=== PATIENT | female | born 1965 | race Caucasian/White ===

== ENCOUNTER 2017-11-12 04:47 | Emergency (ER) | payer OTHER, MEDICAID, SELFPAY ==
[2017-11-12 05:02] VITALS: BP 129/90; PULSE 90; RESP 18; O2SAT 100; BMI 36.6
--- NOTE | 2017-11-12 05:43 | ED.LOWEXIN ---
HPI - Extremity Injury (Lower) General Chief Complaint: Extremity Injury, Lower Stated Complaint: LEFT FOOT IS SWOLLEN Source: patient and RN notes reviewed Mode of arrival: ambulatory Limitations: no limitations History of Present Illness HPI Narrative: Patient is a 52-year-old female who presents with bilateral lower extremity swelling. She does not know how long it has been there probably a couple weeks. She started working and the [employer] on as a new job. She has not had any injury. She notices the swelling gets significantly worse and in the morning it does improve. They were up all night preparing for a garage sale, she feels like her little more painful now. No numbness or tingling. She has not had fever or chills. No chest pain or shortness of breath. Onset (ago): unknown Related Data Previous Rx's Medication Instructions Recorded polyethylene glycol 3350 [Miralax] 17 gm PO QDAYP PRN #1 bot 04/16/16 diclofenac sodium [Voltaren] 1 humberto TOPICAL TID PRN #100 gm 04/23/16 ondansetron [Zofran ODT] 4 mg SUBLINGUAL Q6HP PRN #10 odt 09/08/16 tamsulosin [Flomax] 0.4 mg PO QDAY #7 cap 09/08/16 hydrocodone-acetaminophen 1 tab PO Q6HP PRN #30 tab 03/25/17 phentermine 37.5 mg PO QAM #30 tab 04/20/17 [id number] 4 drp OTIC Q6H #10 ml 08/08/17 levothyroxine [Synthroid] 137 mcg PO QAM #10 tab 09/02/17 meloxicam 15 mg PO QDAY #90 tab 10/01/17 Allergies Allergy/AdvReac Type Severity Reaction Status Date / Time oxycodone [From PERCOCET] Allergy Intermediate RASH Unverified 10/13/17 13:02 Review of Systems Review of Systems All systems reviewed & are unremarkable except as noted in HPI and below Constitutional Denies chills, Denies fever(s), Denies headache(s), Denies lethargy and Denies weakness ENT Ears, Nose, Mouth, and Throat: Denies headache(s) Cardiovascular Denies chest pain, Denies dyspnea and Denies dyspnea on exertion Respiratory Denies dyspnea, Denies dyspnea on exertion and Denies wheezing Gastrointestinal Gastrointestinal: Denies abdominal pain, Denies change in bowel habits, Denies diarrhea, Denies nausea and Denies vomiting Musculoskeletal Reports as per HPI and Denies tingling Neurologic Denies headache(s), Denies tingling, Denies paresthesias and Denies weakness Allergic/Immunologic Denies wheezing [facility] Surgical History Status post surgery (08/15/12) Social History Smoking Status: Current some day smoker Exam Narrative Exam Narrative: GENERAL: Well-appearing, well-nourished and in no acute distress. HEENT: Head atraumatic,EOMI, pupils reactive CARDIOVASCULAR: Regular rate and rhythm without murmurs, rubs or gallops. RESPIRATORY: Breath sounds equal bilaterally, no wheezes rales or rhonchi. ABDOMEN: Soft, nontender. Normoactive bowel sounds all 4 quadrants. No guarding or rebound. EXTREMITIES: Normal range of motion, peripheral pulses intact mild nonpitting foot edema only no tibial edema NEUROLOGICAL: Alert and oriented x4.Normal gait and speech. SKIN: Warm, dry, no laceration, no petechiae, no rashes or lesions. Course Last Vital Signs Pulse 90 11/12/17 05:02 Resp 18 11/12/17 05:02 BP 129/90 H 11/12/17 05:02 Pulse Ox 100 11/12/17 05:02 Discharge Plan Departure Patient Disposition: Home, Self-Care Clinical Impression: Edema extremities Discharge Date/Time: 11/12/17 05:55 Instructions: DI for Edema Due to Venous Stasis Activity Restrictions/Additional Instructions: *You have been diagnosed with venous stasis in lower extremity edema *What to do: Recommend compression socks keeping legs elevated as often as possible, wearing supportive shoe *Take medications as directed *Follow up with your primary care provider in 2-3 days *Return to ER if you should have increasing pain, redness, numbness, tingling or any new, worsening or concerning symptoms Prescriptions: No Action polyethylene glycol 3350 [Miralax] 119 GM powder 17 gm PO QDAYP PRNQty: 1 RF: 3 diclofenac sodium [Voltaren] 1 % gel 1 humberto Topical TID PRNQty: 100 RF: 1 tamsulosin [Flomax] 0.4 MG capsule,extended release 24hr 0.4 mg PO QDAY Qty: 7 RF: 0 ondansetron [Zofran ODT] 4 MG tablet,disintegrating 4 mg Sublingual Q6HP PRNQty: 10 RF: 0 hydrocodone-acetaminophen 5 MG/325 MG tablet 1 tab PO Q6HP PRNQty: 30 RF: 0 phentermine 37.5 MG tablet 37.5 mg PO QAM Qty: 30 RF: 1 [id number] 10 ML drops,suspension 4 drp OTIC Q6H Qty: 10 RF: 0 levothyroxine [Synthroid] 137 MCG tablet 137 mcg PO QAM Qty: 10 RF: 0 meloxicam 15 MG tablet 15 mg PO QDAY Qty: 90 RF: 3 Referrals: Anny Velazco PA-C [Primary Care Provider] -
--- NOTE | 2017-11-12 06:01 | ED_ITS ---
HPI - Extremity Injury (Lower) General Chief Complaint: Extremity Injury, Lower Stated Complaint: LEFT FOOT IS SWOLLEN Source: patient and RN notes reviewed Mode of arrival: ambulatory Limitations: no limitations History of Present Illness HPI Narrative: Patient is a 52-year-old female who presents with bilateral lower extremity swelling. She does not know how long it has been there probably a couple weeks. She started working and the [employer] on as a new job. She has not had any injury. She notices the swelling gets significantly worse and in the morning it does improve. They were up all night preparing for a garage sale, she feels like her little more painful now. No numbness or tingling. She has not had fever or chills. No chest pain or shortness of breath. Onset (ago): unknown Related Data Previous Rx's Medication Instructions Recorded polyethylene glycol 3350 [Miralax] 17 gm PO QDAYP PRN #1 bot 04/16/16 diclofenac sodium [Voltaren] 1 humberto TOPICAL TID PRN #100 gm 04/23/16 ondansetron [Zofran ODT] 4 mg SUBLINGUAL Q6HP PRN #10 odt 09/08/16 tamsulosin [Flomax] 0.4 mg PO QDAY #7 cap 09/08/16 hydrocodone-acetaminophen 1 tab PO Q6HP PRN #30 tab 03/25/17 phentermine 37.5 mg PO QAM #30 tab 04/20/17 [id number] 4 drp OTIC Q6H #10 ml 08/08/17 levothyroxine [Synthroid] 137 mcg PO QAM #10 tab 09/02/17 meloxicam 15 mg PO QDAY #90 tab 10/01/17 Allergies Allergy/AdvReac Type Severity Reaction Status Date / Time oxycodone [From PERCOCET] Allergy Intermediate RASH Unverified 10/13/17 13:02 Review of Systems Review of Systems All systems reviewed & are unremarkable except as noted in HPI and below Constitutional Denies chills, Denies fever(s), Denies headache(s), Denies lethargy and Denies weakness ENT Ears, Nose, Mouth, and Throat: Denies headache(s) Cardiovascular Denies chest pain, Denies dyspnea and Denies dyspnea on exertion Respiratory Denies dyspnea, Denies dyspnea on exertion and Denies wheezing Gastrointestinal Gastrointestinal: Denies abdominal pain, Denies change in bowel habits, Denies diarrhea, Denies nausea and Denies vomiting Musculoskeletal Reports as per HPI and Denies tingling Neurologic Denies headache(s), Denies tingling, Denies paresthesias and Denies weakness Allergic/Immunologic Denies wheezing [facility] Surgical History Status post surgery (08/15/12) Social History Smoking Status: Current some day smoker Exam Narrative Exam Narrative: GENERAL: Well-appearing, well-nourished and in no acute distress. HEENT: Head atraumatic,EOMI, pupils reactive CARDIOVASCULAR: Regular rate and rhythm without murmurs, rubs or gallops. RESPIRATORY: Breath sounds equal bilaterally, no wheezes rales or rhonchi. ABDOMEN: Soft, nontender. Normoactive bowel sounds all 4 quadrants. No guarding or rebound. EXTREMITIES: Normal range of motion, peripheral pulses intact mild nonpitting foot edema only no tibial edema NEUROLOGICAL: Alert and oriented x4.Normal gait and speech. SKIN: Warm, dry, no laceration, no petechiae, no rashes or lesions. Course Last Vital Signs Pulse 90 11/12/17 05:02 Resp 18 11/12/17 05:02 BP 129/90 H 11/12/17 05:02 Pulse Ox 100 11/12/17 05:02 Discharge Plan Departure Patient Disposition: Home, Self-Care Clinical Impression: Edema extremities Discharge Date/Time: 11/12/17 05:55 Instructions: DI for Edema Due to Venous Stasis Activity Restrictions/Additional Instructions: *You have been diagnosed with venous stasis in lower extremity edema *What to do: Recommend compression socks keeping legs elevated as often as possible, wearing supportive shoe *Take medications as directed *Follow up with your primary care provider in 2-3 days *Return to ER if you should have increasing pain, redness, numbness, tingling or any new, worsening or concerning symptoms Prescriptions: No Action polyethylene glycol 3350 [Miralax] 119 GM powder 17 gm PO QDAYP PRNQty: 1 RF: 3 diclofenac sodium [Voltaren] 1 % gel 1 humberto Topical TID PRNQty: 100 RF: 1 tamsulosin [Flomax] 0.4 MG capsule,extended release 24hr 0.4 mg PO QDAY Qty: 7 RF: 0 ondansetron [Zofran ODT] 4 MG tablet,disintegrating 4 mg Sublingual Q6HP PRNQty: 10 RF: 0 hydrocodone-acetaminophen 5 MG/325 MG tablet 1 tab PO Q6HP PRNQty: 30 RF: 0 phentermine 37.5 MG tablet 37.5 mg PO QAM Qty: 30 RF: 1 [id number]-RE 10 ML drops,suspension 4 drp OTIC Q6H Qty: 10 RF: 0 levothyroxine [Synthroid] 137 MCG tablet 137 mcg PO QAM Qty: 10 RF: 0 meloxicam 15 MG tablet 15 mg PO QDAY Qty: 90 RF: 3 Referrals: Anny Velazco PA-C [Primary Care Provider] -
== END 2017-11-12 05:55 | disposition home or self-care (01) ==
PROVIDERS: Emergency Provider Emergency Medicine; Family Provider Physician Assistant; PCP Physician Assistant
DX: R60.0 Localized edema (principal)
CPT/HCPCS: 99282

== ENCOUNTER → 2017-11-26 09:14 | Outpatient (CLI) | payer OTHER, MEDICAID, SELFPAY ==
[2017-11-26 11:04] LABS: Erythrocyte Sedimentation Rate 6 MM/HR (0-20)
[2017-11-26 11:22] LABS: Cholesterol 163 mg/dL (140-199); HDL Cholesterol 63 mg/dL (40-60); LDL Cholesterol Calculated 82 mg/dL (<100); Triglycerides 89 mg/dL (35-150); VLDL Cholesterol Calculated 18 mg/dL (2-30)
[2017-11-26 11:26] LABS: Free T3, Triiodothyronine Free 3.74 pg/mL (2.77-5.27)
[2017-11-26 11:39] LABS: TSH w/ Reflex to FT4 6.12 uIU/mL (0.47-4.68)
[2017-11-26 12:08] LABS: Free T4, Direct Thyroxine 1.19 ng/dL (0.78-2.19)
[2017-11-30 15:32] LABS: Thyroid Peroxidase Antibodies > 900 IU/mL (< 9)
[2017-11-30 15:38] LABS: Triiodothyronine T3 Total 108 ng/dL (76-181)
== END ==
PROVIDERS: Family Provider Physician Assistant; PCP Physician Assistant; Visit Provider Physician Assistant
DX: E66.9 Obesity, unspecified (principal); E03.8 Other specified hypothyroidism; E06.3 Autoimmune thyroiditis; N20.0 Calculus of kidney; R60.0 Localized edema
CPT/HCPCS: 36415; 80061; 84439; 84443; 84480; 84481; 85651; 86376

== ENCOUNTER → 2020-01-24 11:42 | Outpatient (CLI) | payer OTHER, MEDICAID, SELFPAY ==
[2020-01-24 13:13] LABS: Free T4, Direct Thyroxine 1.23 ng/dL (0.78-2.19)
[2020-01-24 13:27] LABS: Thyroid Stimulating Hormone 3.54 uIU/mL (0.47-4.68)
== END ==
PROVIDERS: PCP Family Medicine; Referring Provider Family Medicine; Visit Provider Family Medicine
DX: E03.9 Hypothyroidism, unspecified (principal)
CPT/HCPCS: 36415; 84439; 84443

== ENCOUNTER 2021-12-31 01:15 | Emergency (ER) | payer OTHER, MEDICAID, SELFPAY ==
[2021-12-31 01:38] VITALS: BP 115/61; PULSE 80; RESP 18; TEMP 36.3; O2SAT 97
--- NOTE | 2021-12-31 02:02 | ED.FEMALEGU ---
HPI - Female Genitourinary General Chief complaint: Urogenital-Female Stated complaint: BLADDER INFECTION Time Seen by Provider: 12/31/21 01:26 Source: patient Mode of arrival: Ambulatory History of Present Illness HPI Narrative: 56-year-old female daily smoker with history of hypothyroid, kidney stones, abdominal pain, constipation, sepsis presents with a chief complaint of urinary symptoms including dysuria, frequency or urgency. Related Data Previous Rx's Medication Instructions Recorded polyethylene glycol 3350 17 17 gm PO QDAYP PRN ##1 04/16/16 gram/dose oral powder (Miralax) hydrocodone 5 mg-acetaminophen 325 1 tab PO Q6HP PRN #30 tabs 03/25/17 mg tablet phentermine 37.5 mg tablet 37.5 mg PO QAM #30 tabs 04/20/17 mupirocin calcium 2 % topical cream 1 applictn topical TID #15 grams 11/23/17 levothyroxine 137 mcg tablet 137 mcg PO QAM #30 tabs 04/15/18 (Synthroid) meloxicam 15 mg tablet 15 mg PO QDAY #30 tabs 04/15/18 Allergies Allergy/AdvReac Type Severity Reaction Status Date / Time oxycodone [From PERCOCET] Allergy Intermediate RASH Unverified 11/23/17 09:25 Patient History Medical History (Updated 11/27/17 @ 00:00 by ) Colon polyps (~09/2012) Depression (Unknown) Hepatitis C (~2010) Herpes (~2010) Hypothyroidism (Unknown) Surgical History Status post surgery (08/15/12) alcohol intake frequency: a few times a month Substance Use Type: does not use Exam Initial Vital Signs Initial Vital Signs: Vital Signs Temperature 97.3 F L 12/31/21 01:38 Pulse Rate 80 12/31/21 01:38 Respiratory Rate 18 12/31/21 01:38 Blood Pressure 115/61 12/31/21 01:38 Pulse Oximetry 97 12/31/21 01:38 Oxygen Delivery Method 12/31/21 01:38 Course Vital Signs Vital signs: Vital Signs - 8 hr 12/31/21 01:38 Temperature 97.3 F L Pulse Rate 80 Respiratory Rate 18 Blood Pressure 115/61 Pulse Oximetry 97 Oxygen Delivery Method Room Air Discharge Plan Departure Prescriptions: No Action mupirocin calcium 2 % cream 1 applictn TOP TID Qty: 15 0RF meloxicam 15 mg tablet 15 mg PO QDAY Qty: 30 0RF levothyroxine [Synthroid] 137 mcg tablet 137 mcg PO QAM Qty: 30 0RF polyethylene glycol 3350 [Miralax] 119 GM powder 17 gm PO QDAYP PRNQty: 1 3RF hydrocodone-acetaminophen 5 MG/325 MG tablet 1 tab PO Q6HP PRNQty: 30 0RF phentermine 37.5 MG tablet 37.5 mg PO QAM Qty: 30 1RF Referrals: Lisa Morales DO [Primary Care Provider] -
== END 2021-12-31 02:20 | disposition left against medical advice (07) ==
PROVIDERS: Emergency Provider Emergency Medicine; PCP Family Medicine
CPT/HCPCS: 99281

== ENCOUNTER 2022-01-21 13:12 | Emergency (ER) | payer OTHER, MEDICAID, SELFPAY ==
[2022-01-21 13:26] VITALS: BP 129/79; PULSE 96; RESP 16; TEMP 36.6; O2SAT 99; BMI 37.8
--- NOTE | 2022-01-21 15:05 | PC.NURSE ---
Called patient. Per administrative support clerk, she got out of wheelchair and went outside for a walk.
== END 2022-01-21 15:05 | disposition left against medical advice (07) ==
PROVIDERS: Emergency Provider Emergency Medicine; PCP Physician Assistant
CPT/HCPCS: 99281

== ENCOUNTER 2022-06-27 08:30 | Emergency (ER) | payer OTHER, MEDICAID, SELFPAY ==
[2022-06-27 08:39] VITALS: BP 155/78; PULSE 70; RESP 14; TEMP 36.8; O2SAT 99; BMI 37.8
[2022-06-27 12:04] VITALS: BP 128/90; PULSE 82; RESP 18; TEMP 36.5; O2SAT 99
--- NOTE | 2022-06-27 12:38 | ED_ITS ---
HPI - Skin/Abscess/Foreign Bdy General Chief complaint: Skin/Abscess/Foreign Body Stated complaint: cut finger is bleeding takes metaform Time Seen by Provider: 06/27/22 12:38 Source: patient Mode of arrival: Ambulatory Limitations: no limitations History of Present Illness HPI narrative: This is a 56-year-old female with history of hypothyroidism and dyb-quqkagw-wulohznjc diabetes on metformin and levothyroxine with complaint of laceration to her 3rd finger and very superficially on her 2nd finger at home earlier today. Patient states she was trying to open a package she did not or could not find her scissors used a razor and accidentally cut her finger. She states she can flex and straighten it. She does not know if there is any numbness or tingling. Her fingers have been wrapped quite tightly for several hours and she states they feel numb right now. Patient states there was bleeding when initially occurred that is improved. She is unsure of her tetanus status. She does smoke, occasional alcohol, no illicit. Related Data Previous Rx's Medication Instructions Recorded polyethylene glycol 3350 17 17 gm PO QDAYP PRN ##1 04/16/16 gram/dose oral powder (Miralax) hydrocodone 5 mg-acetaminophen 325 1 tab PO Q6HP PRN #30 tabs 03/25/17 mg tablet phentermine 37.5 mg tablet 37.5 mg PO QAM #30 tabs 04/20/17 mupirocin calcium 2 % topical cream 1 applictn topical TID #15 grams 11/23/17 levothyroxine 137 mcg tablet 137 mcg PO QAM #30 tabs 04/15/18 (Synthroid) meloxicam 15 mg tablet 15 mg PO QDAY #30 tabs 04/15/18 Allergies Allergy/AdvReac Type Severity Reaction Status Date / Time oxycodone [From PERCOCET] Allergy Intermediate RASH Verified 06/27/22 08:46 Review of Systems Review of Systems ROS Unobtainable: All systems reviewed & are unremarkable except as noted in HPI and below Patient History Medical History (Updated 06/27/22 @ 13:01 by Melinda Tirado DO) Colon polyps (~09/2012) Depression (Unknown) Hepatitis C (~2010) Herpes (~2010) Hypothyroidism (Unknown) Surgical History Status post surgery (08/15/12) Social History marital status: Smoking Status: Current every day smoker Smoking Status: Current every day smoker alcohol intake frequency: a few times a month Substance Use Type: does not use Exam Narrative Exam Narrative: GENERAL: Alert and oriented x three, mild distress HEENT: Head normocephalic, atraumatic, EOMI, pupils reactive, face symmetric, moist mucous membranes NECK: Supple, full range of motion EXTREMITIES: Normal range of motion, no clubbing or edema. Neurovascularly inta ct. Patient has laceration of the 3rd digit of her left hand. Patient is gapped, subcutaneous is exposed, no bony or tender involvement. Patient can flex and extend. Intact distally with no decreasing cap refill. Right-hand dominant. She is a very superficial lack on her 2nd finger which is not requiring repair. NEUROLOGICAL: Cranial nerves II through XII grossly intact. Moving all extremit ies SKIN: Warm, dry, no petechiae, no rashes or lesions. Initial Vital Signs Initial Vital Signs: Vital Signs Temperature 98.2 F 06/27/22 08:39 Pulse Rate 70 06/27/22 08:39 Respiratory Rate 14 06/27/22 08:39 Blood Pressure 155/78 H 06/27/22 08:39 Pulse Oximetry 99 06/27/22 08:39 Oxygen Delivery Method 06/27/22 08:39 Course Orders Ordered: Discontinued Medications Bacitracin (Bacitracin Oint 0.9 Gm Pckt) 1 applic TOP NOW ONE Stop: 06/27/22 13:47 Last Admin: 06/27/22 13:48 Dose: 1 applic Documented By: LASHON Diphtheria/Tetanus/Acell Pertussis (Tet,Diph,Pertuss(Acell),Vac/Pf 0.5 Ml Syringe) 0.5 ml IM .ONCE ONE Stop: 06/27/22 12:58 Last Admin: 06/27/22 13:12 Dose: 0.5 ml Documented By: LASHON Lidocaine HCl (Lidocaine 2% Inj Sdv) 5 ml INJ INTRA-OP ONE Stop: 06/27/22 12:58 Last Admin: 06/27/22 13:17 Dose: 5 ml Documented By: LASHON Vital Signs Vital signs: Vital Signs - 8 hr 06/27/22 08:39 06/27/22 12:04 Temperature 98.2 F 97.7 F Pulse Rate 70 82 Respiratory Rate 14 18 Blood Pressure 155/78 H 128/90 Pulse Oximetry 99 99 Oxygen Delivery Method Room Air Room Air Discharge Plan Departure Patient Disposition: Home Clinical Impression: Laceration of finger Instructions: DI for Laceration Repair -- Finger Activity Restrictions/Additional Instructions: Follow-up for suture removal in 7-10 days. You can get a primary care, urgent care or return to the ER for suture removal. You have 7 sutures total. Wound Care: Keep wound(s) clean and dry. Wash daily with soap and water only. Do not use over the counter products (alcohol or peroxide)on the wounds unless instructed by a physician. If wound condition worsens (increased/expanding redness, developing fluid blisters, or worsening pain), either contact your doctor for an urgent re- assessment , or return to the Emergency Department. Return to the Emergency Department for any new or worsening symptoms. Return if fever greater than 100.4 Fahrenheit, increased swelling, increasing pain or worsening symptoms such as increased discharge or spreading redness. Prescriptions: No Action mupirocin calcium 2 % cream 1 applictn TOP TID Qty: 15 0RF meloxicam 15 mg tablet 15 mg PO QDAY Qty: 30 0RF levothyroxine [Synthroid] 137 mcg tablet 137 mcg PO QAM Qty: 30 0RF polyethylene glycol 3350 [Miralax] 119 GM powder 17 gm PO QDAYP PRNQty: 1 3RF hydrocodone-acetaminophen 5 MG/325 MG tablet 1 tab PO Q6HP PRNQty: 30 0RF phentermine 37.5 MG tablet 37.5 mg PO QAM Qty: 30 1RF Referrals: Marco Antonio Head PA-C [Primary Care Provider] - Visit Report Forms: Patient Portal/API
[2022-06-27] MEDS: TET,DIPH,PERTUSS(ACELL),VAC/PF 0.5 ML SYRINGE IM (13:12)
[2022-06-27] MEDS: LIDOCAINE 2% INJ SDV 5 ML INJ (13:17)
[2022-06-27] MEDS: BACITRACIN OINT 0.9 GM PCKT 1 APPLIC TOP (13:48)
[2022-06-27 13:53] VITALS: BP 133/88; PULSE 88; RESP 16; O2SAT 99
--- NOTE | 2022-07-11 12:56 | ED_ITS ---
HPI - Skin/Abscess/Foreign Bdy General Chief complaint: Skin/Abscess/Foreign Body Stated complaint: cut finger is bleeding takes metaform Time Seen by Provider: 06/27/22 12:38 Source: patient Mode of arrival: Ambulatory Limitations: no limitations Related Data Previous Rx's Medication Instructions Recorded polyethylene glycol 3350 17 17 gm PO QDAYP PRN ##1 04/16/16 gram/dose oral powder (Miralax) hydrocodone 5 mg-acetaminophen 325 1 tab PO Q6HP PRN #30 tabs 03/25/17 mg tablet phentermine 37.5 mg tablet 37.5 mg PO QAM #30 tabs 04/20/17 mupirocin calcium 2 % topical cream 1 applictn topical TID #15 grams 11/23/17 levothyroxine 137 mcg tablet 137 mcg PO QAM #30 tabs 04/15/18 (Synthroid) meloxicam 15 mg tablet 15 mg PO QDAY #30 tabs 04/15/18 Allergies Allergy/AdvReac Type Severity Reaction Status Date / Time oxycodone [From PERCOCET] Allergy Intermediate RASH Verified 06/27/22 08:46 Patient History Medical History (Updated 06/27/22 @ 13:01 by Melinda Tirado DO) Colon polyps (~09/2012) Depression (Unknown) Hepatitis C (~2010) Herpes (~2010) Hypothyroidism (Unknown) Surgical History Status post surgery (08/15/12) Social History marital status: Smoking Status: Current every day smoker Smoking Status: Current every day smoker alcohol intake frequency: a few times a month Substance Use Type: does not use Exam Initial Vital Signs Initial Vital Signs: Vital Signs Temperature 98.2 F 06/27/22 08:39 Pulse Rate 70 06/27/22 08:39 Respiratory Rate 14 06/27/22 08:39 Blood Pressure 155/78 H 06/27/22 08:39 Pulse Oximetry 99 06/27/22 08:39 Oxygen Delivery Method 06/27/22 08:39 Procedures Laceration Repair Laceration 1: Site: hand Side (If applicable): left (3rd finger.) Description: linear and flap Depth: simple, single layer Local Anesthetic: lidocaine 1% and with bicarb Amount of anesthesia used (mL): 5 Pre-repair: wound explored, irrigated extensively and deep structures intact Skin layer closed with: nylon Skin layer suture size: 4-0 Number of sutures: 7 Technique: simple, interrupted Course Orders Ordered: Discontinued Medications Bacitracin (Bacitracin Oint 0.9 Gm Pckt) 1 applic TOP NOW ONE Stop: 06/27/22 13:47 Last Admin: 06/27/22 13:48 Dose: 1 applic Documented By: LASHON Diphtheria/Tetanus/Acell Pertussis (Tet,Diph,Pertuss(Acell),Vac/Pf 0.5 Ml Syringe) 0.5 ml IM .ONCE ONE Stop: 06/27/22 12:58 Last Admin: 06/27/22 13:12 Dose: 0.5 ml Documented By: LASHON Lidocaine HCl (Lidocaine 2% Inj Sdv) 5 ml INJ INTRA-OP ONE Stop: 06/27/22 12:58 Last Admin: 06/27/22 13:17 Dose: 5 ml Documented By: LASHON Discharge Plan Departure Patient Disposition: Home Clinical Impression: Laceration of finger Instructions: DI for Laceration Repair -- Finger Activity Restrictions/Additional Instructions: Follow-up for suture removal in 7-10 days. You can get a primary care, urgent care or return to the ER for suture removal. You have 7 sutures total. Wound Care: Keep wound(s) clean and dry. Wash daily with soap and water only. Do not use over the counter products (alcohol or peroxide)on the wounds unless instructed by a physician. If wound condition worsens (increased/expanding redness, developing fluid blisters, or worsening pain), either contact your doctor for an urgent re- assessment , or return to the Emergency Department. Return to the Emergency Department for any new or worsening symptoms. Return if fever greater than 100.4 Fahrenheit, increased swelling, increasing pain or worsening symptoms such as increased discharge or spreading redness. Prescriptions: No Action mupirocin calcium 2 % cream 1 applictn TOP TID Qty: 15 0RF meloxicam 15 mg tablet 15 mg PO QDAY Qty: 30 0RF levothyroxine [Synthroid] 137 mcg tablet 137 mcg PO QAM Qty: 30 0RF polyethylene glycol 3350 [Miralax] 119 GM powder 17 gm PO QDAYP PRNQty: 1 3RF hydrocodone-acetaminophen 5 MG/325 MG tablet 1 tab PO Q6HP PRNQty: 30 0RF phentermine 37.5 MG tablet 37.5 mg PO QAM Qty: 30 1RF Referrals: Marco Antonio Head PA-C [Primary Care Provider] - Visit Report Forms: Patient Portal/API
== END 2022-06-27 13:53 | disposition home or self-care (01) ==
PROVIDERS: Emergency Provider Emergency Medicine; PCP Physician Assistant
DX: S61.213A Laceration without foreign body of left middle finger without damage to nail, initial encounter (principal); S61.211A Laceration without foreign body of left index finger without damage to nail, initial encounter; W26.8XXA Contact with other sharp object(s), not elsewhere classified, initial encounter; Z23 Encounter for immunization
CPT/HCPCS: 12002; 90471; 99283; 90715

== ENCOUNTER 2022-09-22 23:33 | Emergency (ER) | payer OTHER, MEDICAID, SELFPAY ==
[2022-09-22 23:40] VITALS: BP 125/83; PULSE 100; RESP 20; TEMP 36.6; O2SAT 98; BMI 32.5
--- NOTE | 2022-09-22 23:56 | ED.EYEPROB ---
HPI - Eye Problem General Chief complaint: Skin/Abscess/Foreign Body Stated complaint: something in lt eye Time Seen by Provider: 09/22/22 23:34 Source: patient Mode of arrival: Ambulatory History of Present Illness HPI Narrative: 57-year-old female smoker history of hypothyroid and osteopenia presents for evaluation of a painful lesion on her left upper eyelid and concerned that maybe something is in her eye. She denies any injury or foreign body exposure. She does not use contacts. 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 She had been seen and evaluated by her primary care provider a few days ago and given her history and this painful lesion on her eyelid she was started on valacyclovir which she continues to take. She denies any pain or vision change with in her high but is concerned given her history. Related Data Previous Rx's Medication Instructions Recorded polyethylene glycol 3350 17 17 gm PO QDAYP PRN ##1 04/16/16 gram/dose oral powder (Miralax) hydrocodone 5 mg-acetaminophen 325 1 tab PO Q6HP PRN #30 tabs 03/25/17 mg tablet phentermine 37.5 mg tablet 37.5 mg PO QAM #30 tabs 04/20/17 mupirocin calcium 2 % topical cream 1 applictn topical TID #15 grams 11/23/17 levothyroxine 137 mcg tablet 137 mcg PO QAM #30 tabs 04/15/18 (Synthroid) meloxicam 15 mg tablet 15 mg PO QDAY #30 tabs 04/15/18 Allergies Allergy/AdvReac Type Severity Reaction Status Date / Time oxycodone [From PERCOCET] Allergy Intermediate RASH Verified 06/27/22 08:46 Review of Systems Review of Systems Narrative: GENERAL: Denies chills, fatigue, malaise, fever, sweats. HEENT: See HPI RESPIRATORY: Denies dyspnea, cough, wheezing, hemoptysis, sputum. CARDIOVASCULAR: Denies chest pain, palpitations, orthopnea, edema, GASTROINTESTINAL: Denies nausea, vomiting, abdominal pain, diarrhea, constipation, melena. : Denies dysuria, frequency, incontinence, hematuria, urinary retention. MUSCULOSKELETAL: denies weakness, joint pain, or bony pain SKIN: See HPI NEUROLOGIC: See HPI PSYCHIATRIC: No concerning psychosocial issues. 12 point review of systems is negative except for those stated above Patient History Medical History Colon polyps (~09/2012) Depression (Unknown) Hepatitis C (~2010) Herpes (~2010) Hypothyroidism (Unknown) Surgical History Status post surgery (08/15/12) Social History marital status: Smoking Status: Current every day smoker Smoking Status: Current every day smoker alcohol intake frequency: a few times a month Substance Use Type: does not use Exam Narrative Exam Narrative: GEN: AOx3 and in mild distress EYES: Left upper lid with small single lesion that is slightly tender, there are no other fluid-filled blisters no other classic signs of zoster. Pupils are equal, round, and reactive to light and accommodation. Extraoccular muscles are intact bilaterally. There is no subconjunctival hemorrhage or exudate. Visual acuity 20 40 in OS, OD, OU. Left eye funduscopic without abnormal finding, no foreign body noted, upper lid everted. Proparacaine and fluorescein instilled, no dye uptake, ulcerations or dendritic lesions. Pressure 16 mmHg in left eye CHEST: Lungs are clear to auscultation bilaterally and free of wheezes, rales, or rhonchi. Heart rate is regular rhythm, there are no murmurs, clicks, rubs, or gallops. There is no chest wall tenderness. ABD: Abdomen is soft and nontender. There is no guarding or rebound. Bowel sounds are normal in all 4 quadrants. There is no mass or organomegaly. EXT: Full painless ROM of all extremities with no loss of sensation or strength. SKIN: Warm, pink, and dry. No erythema or rash Initial Vital Signs Initial Vital Signs: Vital Signs Temperature 97.9 F 09/22/22 23:40 Pulse Rate 100 H 09/22/22 23:40 Respiratory Rate 20 09/22/22 23:40 Blood Pressure 125/83 09/22/22 23:40 Pulse Oximetry 98 09/22/22 23:40 Oxygen Delivery Method Room Air 09/22/22 23:40 Course Orders Ordered: Discontinued Medications Fluorescein Sodium (Fluorescein 1 Mg Strip) 1 mg EYE-LEFT NOW ONE Stop: 09/22/22 23:35 Last Admin: 09/23/22 00:09 Dose: Not Given Documented By: MANISHA Proparacaine HCl (Proparacaine 0.5% Ophth Katie) 1 drops EYE-LEFT NOW ONE Stop: 09/22/22 23:35 Last Admin: 09/23/22 00:08 Dose: 1 drop Documented By: MANISHA Vital Signs Vital signs: Vital Signs - 8 hr 09/22/22 23:40 Temperature 97.9 F Pulse Rate 100 H Respiratory Rate 20 Blood Pressure 125/83 Pulse Oximetry 98 Oxygen Delivery Method Room Air MDM - Eye Problem MDM Narrative Medical decision making narrative: [57] year old patient presents with left upper eyelid pain and concern for possible zoster infection Multiple etiologies for patient's symptoms considered including, but not limited to: [Zoster ophthalmicus, stye, cellulitis, blepharitis, acute angle closure glaucoma versus other] Prior Charts reviewed in our EMR Primary Historian: patient Patient's symptoms improved over duration of stay with above-stated therapies. Pressures are normal, no dye uptake to suggest zoster ophthalmicus, no upper lid swelling or foreign body noted. Findings and discharge diagnosis discussed with patient/family followed by verbalization of understanding Return precautions discussed with patient/family whom verbalize understanding of diagnosis and plan Discharge Plan Departure Patient Disposition: Home Clinical Impression: Irritation of eyelid Activity Restrictions/Additional Instructions: *You have been diagnosed with [left eye lid irritation. As we discussed your history and exam are reassuring, but we would still recommend you follow up with Dr. Joseph tomorrow ] *What to do: *Please continue to take your regular medications as directed. *Please follow up with your Dr. Joseph (ophthalmology) tomorrow. As we discussed if you either call or just show up to the office 1st thing in the morning, let them know that you were seen in the emergency department and we would like you seen and close follow-up they will take your information and work you in to their patient flow for the day. I will electronically transmitted a copy of today's note *Return to Emergency Department if you should have any new, worsening or concerning symptoms, such as [fever greater than 101 F, shaking chills, worsening pain, persistent vomiting or other bothersome symptoms] Prescriptions: No Action mupirocin calcium 2 % cream 1 applictn TOP TID Qty: 15 0RF meloxicam 15 mg tablet 15 mg PO QDAY Qty: 30 0RF levothyroxine [Synthroid] 137 mcg tablet 137 mcg PO QAM Qty: 30 0RF polyethylene glycol 3350 [Miralax] 119 GM powder 17 gm PO QDAYP PRNQty: 1 3RF hydrocodone-acetaminophen 5 MG/325 MG tablet 1 tab PO Q6HP PRNQty: 30 0RF phentermine 37.5 MG tablet 37.5 mg PO QAM Qty: 30 1RF Referrals: Caroline Joseph MD [Physician] - Marco Antonio Head PA-C [Primary Care Provider] - Stand Alone Forms: Patient Portal/API
[2022-09-23] MEDS: PROPARACAINE 0.5% OPHTH SOL 1 DROPS EYE-LEFT (00:08)
== END 2022-09-23 00:11 | disposition home or self-care (01) ==
PROVIDERS: Emergency Provider Emergency Medicine; PCP Physician Assistant
DX: H02.89 Other specified disorders of eyelid (principal)
CPT/HCPCS: 99282

== ENCOUNTER 2022-12-13 05:03 | Emergency (ER) | payer OTHER, MEDICAID, SELFPAY ==
[2022-12-13 05:15] VITALS: BP 153/99; PULSE 83; RESP 16; TEMP 36.4; O2SAT 95; BMI 37.8
--- NOTE | 2022-12-13 06:05 | ED_ITS ---
HPI - General Adult <Lisa Charles MD - Last Filed: 12/20/22 06:17> General Chief complaint: Abdominal Pain Stated complaint: Constipated Time Seen by Provider: 12/13/22 05:27 Mode of arrival: Ambulatory History of Present Illness HPI narrative: 57-year-old woman with history of hypothyroidism, sacral fracture over a year ago severe enough that she could not walk for a number of months seemingly healing at this point, osteoporosis and history of chronic constipation since childhood. She typically takes 2 stool softeners daily and will occasionally use enemas and suppositories to help with bowel movements. Choose noticing incr easing pain into her right buttock that occasionally has been constipation related. She also notes with the sacral fracture that was eventually diagnosed with MRI about a year ago, she had similar pain presentation. She states that she does feel constipated. She is taken to suppositories and done to [id number] enemas with a small amount of ?long skinny stool resulting?. She describes no recent falls or trauma. No obvious back pain but she is quite uncomfortable and having difficulty bending overt secondary to pain. No recent fever, cough, chills no vomiting or nausea. No headaches chest pain or palpitations. Related Data Previous Rx's Medication Instructions Recorded polyethylene glycol 3350 17 17 gm PO QDAYP PRN ##1 04/16/16 gram/dose oral powder (Miralax) hydrocodone 5 mg-acetaminophen 325 1 tab PO Q6HP PRN #30 tabs 03/25/17 mg tablet phentermine 37.5 mg tablet 37.5 mg PO QAM #30 tabs 04/20/17 mupirocin calcium 2 % topical cream 1 applictn topical TID #15 grams 11/23/17 levothyroxine 137 mcg tablet 137 mcg PO QAM #30 tabs 04/15/18 (Synthroid) meloxicam 15 mg tablet 15 mg PO QDAY #30 tabs 04/15/18 gabapentin 300 mg capsule 300 mg PO BEDTIME #14 caps 12/13/22 ketorolac 10 mg tablet 10 mg PO Q6H PRN pain #14 tabs 12/13/22 methylprednisolone 4 mg tablets in See Rx Instructions PO .COMPLEX 12/13/22 a dose pack (Medrol (Alexandr)) #21 ea ondansetron 4 mg disintegrating 4 mg PO TID-QID PRN nausea and 12/13/22 tablet vomiting #10 tabs Allergies Allergy/AdvReac Type Severity Reaction Status Date / Time oxycodone [From PERCOCET] Allergy Intermediate RASH Verified 06/27/22 08:46 Review of Systems <Lisa Charles MD - Last Filed: 12/20/22 06:17> Review of Systems Narrative: Pertinent positive and negative findings as per HPI Patient History <Lisa Charles MD - Last Filed: 12/20/22 06:17> Medical History (Updated 12/13/22 @ 08:29 by Luis Alberto Galvin DO) Colon polyps (~09/2012) Depression (Unknown) Hepatitis C (~2010) Herpes (~2010) Hypothyroidism (Unknown) Surgical History Status post surgery (08/15/12) Social History marital status: Smoking Status: Current every day smoker Smoking Status: Current every day smoker alcohol intake frequency: a few times a month Substance Use Type: does not use Exam <Lisa Charles MD - Last Filed: 12/20/22 06:17> Initial Vital Signs Initial Vital Signs: Vital Signs Temperature 97.6 F 12/13/22 05:15 Pulse Rate 83 12/13/22 05:15 Respiratory Rate 16 12/13/22 05:15 Blood Pressure 153/99 H 12/13/22 05:15 Pulse Oximetry 95 12/13/22 05:15 Oxygen Delivery Method Room Air 12/13/22 05:15 General: Somewhat disheveled and in mild pain trying to stay off her right hip and perineum. Able to participate completely with history. HEENT: Moist mucous membranes, normal sclera with reactive pupils, Respiratory: Lungs are clear to auscultation, no wheezing no rales no rhonchi. Full and symmetrical air movement Cardiac: Regular rate and rhythm no murmurs no bruits Abdomen: Soft, nontender, good bowel tones, no flank pain Rectal exam: She has no stool in the rectal vault Skin: Warm and dry, no rashes Neurologic: Grossly neurologically intact with no obvious asymmetries or abnormalities Spine, no point tenderness along her lumbar spine or into her sacrum. She points to mid gluteal region right side as the biggest source of her pain with no obvious masses, skin changes or muscle spasm in the area of concern. Extremities: No trauma, well perfused Psych: Cooperative, appropriate insight and affect <Luis Alberto Galvin DO - Last Filed: 12/13/22 13:11> Initial Vital Signs Initial Vital Signs: Vital Signs Temperature 97.6 F 12/13/22 05:15 Pulse Rate 83 12/13/22 05:15 Respiratory Rate 16 12/13/22 05:15 Blood Pressure 153/99 H 12/13/22 05:15 Pulse Oximetry 95 12/13/22 05:15 Oxygen Delivery Method Room Air 12/13/22 05:15 Course <Lisa Charles MD - Last Filed: 12/20/22 06:17> Orders Ordered: Discontinued Medications Acetaminophen (Acetaminophen 325 Mg Tablet) 325 mg PO NOW ONE Stop: 12/13/22 06:22 Last Admin: 12/13/22 08:05 Dose: 325 mg Documented By: RB Ibuprofen (Ibuprofen 400 Mg Tablet) 400 mg PO NOW ONE Stop: 12/13/22 06:22 Last Admin: 12/13/22 08:06 Dose: 400 mg Documented By: RB Vital Signs Vital signs: Vital Signs - 8 hr 12/13/22 05:15 12/13/22 08:48 Temperature 97.6 F 98.1 F Pulse Rate 83 82 Respiratory Rate 16 17 Blood Pressure 153/99 H 138/80 Pulse Oximetry 95 97 Oxygen Delivery Method Room Air Room Air <Luis Alberto Galvin DO - Last Filed: 12/13/22 13:11> Orders Ordered: Discontinued Medications Acetaminophen (Acetaminophen 325 Mg Tablet) 325 mg PO NOW ONE Stop: 12/13/22 06:22 Last Admin: 12/13/22 08:05 Dose: 325 mg Documented By: RB Ibuprofen (Ibuprofen 400 Mg Tablet) 400 mg PO NOW ONE Stop: 12/13/22 06:22 Last Admin: 12/13/22 08:06 Dose: 400 mg Documented By: RB Vital Signs Vital signs: Vital Signs - 8 hr 12/13/22 05:15 12/13/22 08:48 Temperature 97.6 F 98.1 F Pulse Rate 83 82 Respiratory Rate 16 17 Blood Pressure 153/99 H 138/80 Pulse Oximetry 95 97 Oxygen Delivery Method Room Air Room Air Medical Decision Making <Lisa Charles MD - Last Filed: 12/20/22 06:17> Lab Data Labs: Urine Dip Bedside Urine Glucose Negative Bedside Urine Bilirubin - Negative Bedside Urine Ketone - Negative Urine Specific [place] 1.030 Bedside Urine Occult Blood +/- Bedside Urine pH 6.0 Bedside Urine Protein - Negative Bedside Urine Urobilinogen - Negative Bedside Urine Nitrite - Negative Bedside Urine Leukocytes - Negative Esterase Point of care testing: Urine Dip Bedside Urine Glucose Negative Bedside Urine Bilirubin - Negative Bedside Urine Ketone - Negative Urine Specific [place] 1.030 Bedside Urine Occult Blood +/- Bedside Urine pH 6.0 Bedside Urine Protein - Negative Bedside Urine Urobilinogen - Negative Bedside Urine Nitrite - Negative Bedside Urine Leukocytes - Negative Esterase MDM Narrative Medical decision making narrative: CC: Right buttock pain. This is an acute problem uncertain prognosis Complicating co-morbidities: History of sacral fracture with poor mobility, long history of constipation, osteoporosis, Data collected from: patient, Differential considered: Constipation, shingles, radicular pain into the buttock, recurrent sacral fracture, Exam documented above, pertinent findings include: No obstipation or stool in the rectum. No point tenderness over the lumbar area. Difficulty bending forward secondary to pain and difficulty sitting on her right hip/but cheek secondary to pain. Lab Test results independently reviewed as above. Pertinent findings: Imaging studies independently reviewed: Treatments: Oral ibuprofen and Tylenol Re-evaluations: Discussion: <Luis Alberto Galvin DO - Last Filed: 12/13/22 13:11> Lab Data Labs: Urine Dip Bedside Urine Glucose Negative Bedside Urine Bilirubin - Negative Bedside Urine Ketone - Negative Urine Specific [place] 1.030 Bedside Urine Occult Blood +/- Bedside Urine pH 6.0 Bedside Urine Protein - Negative Bedside Urine Urobilinogen - Negative Bedside Urine Nitrite - Negative Bedside Urine Leukocytes - Negative Esterase Point of care testing: Urine Dip Bedside Urine Glucose Negative Bedside Urine Bilirubin - Negative Bedside Urine Ketone - Negative Urine Specific [place] 1.030 Bedside Urine Occult Blood +/- Bedside Urine pH 6.0 Bedside Urine Protein - Negative Bedside Urine Urobilinogen - Negative Bedside Urine Nitrite - Negative Bedside Urine Leukocytes - Negative Esterase MDM Narrative Medical decision making narrative: CC: Right buttock pain. This is an acute problem uncertain prognosis Complicating co-morbidities: History of sacral fracture with poor mobility, long history of constipation, osteoporosis, Data collected from: patient, Differential considered: Constipation, shingles, radicular pain into the buttock, recurrent sacral fracture, Exam documented above, pertinent findings include: No obstipation or stool in the rectum. No point tenderness over the lumbar area. Difficulty bending forward secondary to pain and difficulty sitting on her right hip/but cheek secondary to pain. Lab Test results independently reviewed as above. Pertinent findings: Imaging studies independently reviewed: X-rays of abdomen and pelvis demonstrate no evidence of obstruction but comment on above average stool burden. No bony abnormality Treatments: Oral ibuprofen and Tylenol Re-evaluations: Patient's pain is well controlled, she is tolerating orals, hemodynamically stable [0700] (Kamar) Patient received in sign out from [Kamar]. I have reviewed the clinical course and performed an independent history and physical exam. She prefers [facility] in [place] Discussion: Patient with generalized abdominal discomfort and decreased bowel movements. No vomiting, abdomen is soft and imaging as well as history and p hysical exam suggestive of no bowel obstruction. Patient complaining of right buttock pain with radiation down her leg, no imaging abnormalities to suggest bony abnormality. She does have evidence suggestive of a lumbar radiculopathy given pain and radiation but no red flag findings suggestive of cauda equina, epidural abscess, hematoma or other neurosurgical emergency. I have discussed various [id number] options for constipation, prescription sent to her pharmacy of choice. Return precautions including persistent vomiting, worsening pain, lower extremity weakness, loss of control of bowel or bladder. Patient understands and agrees with the diagnosis and plan Discharge Plan Departure Patient Disposition: Home Clinical Impression: Lumbar pain with radiation down leg, Constipation Instructions: DI for Constipation, DI for Lumbar Radiculopathy Activity Restrictions/Additional Instructions: *You have been diagnosed with [ abdominal pain due to constipation and low back pain with radiation down your leg due to radiculopathy.] *What to do: Prescriptions sent to [facility] in [place] *Take over the counter medications as directed: 1. Metamucil - is a bulk forming laxative and adds fiber 2. Colace - softens your stool 3. Dulcolax suppository - stimulates your bowels *Follow up with your primary care provider in 2-3 days, call for appointment *Return to ER if you should have any new, worsening or concerning symptoms *Drink plenty of water and eat foods high in fiber *Stay as active as you can as this helps move your bowels as well As we discussed I have included contact information for Dr. Whitfield who can help discuss options moving forward regarding your radicular pains. Please call his office tomorrow, let them know you were seen in the emergency department and we would like you seen in follow-up. I will electronically transmitted a copy of today's note Please return to the emergency department for worsening pain, leg weakness, loss of control of bowel or bladder, persistent vomiting or other bothersome symptoms Prescriptions: New ketorolac 10 mg tablet 10 mg PO Q6H PRN (Reason: pain) Qty: 14 0RF gabapentin 300 mg capsule 300 mg PO BEDTIME Qty: 14 0RF methylprednisolone [Medrol (Alexandr)] 4 mg tablets,dose pack See Rx Instructions .ROUTE .COMPLEX Qty: 21 0RF Rx Instructions: orally per package directions ondansetron 4 mg tablet,disintegrating 4 mg PO TID-QID PRN (Reason: nausea and vomiting) Qty: 10 0RF No Action mupirocin calcium 2 % cream 1 applictn TOP TID Qty: 15 0RF meloxicam 15 mg tablet 15 mg PO QDAY Qty: 30 0RF levothyroxine [Synthroid] 137 mcg tablet 137 mcg PO QAM Qty: 30 0RF polyethylene glycol 3350 [Miralax] 119 GM powder 17 gm PO QDAYP PRNQty: 1 3RF hydrocodone-acetaminophen 5 MG/325 MG tablet 1 tab PO Q6HP PRNQty: 30 0RF phentermine 37.5 MG tablet 37.5 mg PO QAM Qty: 30 1RF Referrals: Minoo Whitfield MD [Physician] - Marco Antonio Head PA-C [Primary Care Provider] - Stand Alone Forms: Patient Portal/API
--- NOTE | 2022-12-13 06:21 | DI.RAD.S_ITS ---
PROCEDURE: XR PELVIS 1-2V INDICATIONS: buttock pain TECHNIQUE: 1 view(s) of the pelvis acquired. COMPARISON: None. FINDINGS: Bones: Mild degenerative changes of the bilateral hips. Lumbosacral degenerative changes also seen. Soft tissues: Increased stool burden. IMPRESSION: Mild degenerative changes of the hips and lumbosacral junction. Above average fecal loading. If there is high concern for further derangement, consider MRI evaluation. Dictated by: Herberth Solorio M.D. on 12/13/2022 at 8:15 Approved by: Herberth Solorio M.D. on 12/13/2022 at 8:15
--- NOTE | 2022-12-13 06:21 | DI.RAD.S_ITS ---
PROCEDURE: XR ABDOMEN 1V INDICATIONS: abdominal pain TECHNIQUE: One view of the abdomen acquired. COMPARISON: None. FINDINGS: Surgical changes and devices: Gastric band. Phi angle is in appropriate position Bowel: Nonspecific bowel gas pattern. Overall increased stool burden. Soft tissues: Cholecystectomy clips. No suspicious calcifications. Bones: Degenerative changes and rightward spinal curvature. IMPRESSION: Increased stool burden. Nonspecific bowel gas pattern otherwise. Gastric band in place. There are degenerative changes. If there is high concern for acute abdomen, consider CT Dictated by: Herberth Solorio M.D. on 12/13/2022 at 8:13 Approved by: Herberth Solorio M.D. on 12/13/2022 at 8:15
[2022-12-13] MEDS: ACETAMINOPHEN 325 MG TABLET PO (08:05)
[2022-12-13] MEDS: IBUPROFEN 400 MG TABLET PO (08:06)
[2022-12-13 08:48] VITALS: BP 138/80; PULSE 82; RESP 17; TEMP 36.7; O2SAT 97
== END 2022-12-13 08:49 | disposition home or self-care (01) ==
PROVIDERS: Emergency Provider Emergency Medicine; PCP Physician Assistant
DX: K59.00 Constipation, unspecified (principal); M54.16 Radiculopathy, lumbar region
CPT/HCPCS: 72170; 74018; 81003; 99283

== ENCOUNTER 2023-02-09 15:26 | Emergency (ER) | payer OTHER, MEDICAID, SELFPAY ==
[2023-02-09 15:51] VITALS: BP 122/74; PULSE 87; RESP 18; TEMP 36.8; O2SAT 95; BMI 37.8
== END 2023-02-09 19:40 | disposition left against medical advice (07) ==
PROVIDERS: Emergency Provider Emergency Medicine; PCP Physician Assistant
DX: T14.8XXA Other injury of unspecified body region, initial encounter (principal)
CPT/HCPCS: 99281

== ENCOUNTER 2023-02-10 06:01 | Emergency (ER) | payer OTHER, MEDICAID, SELFPAY ==
[2023-02-10 06:25] VITALS: PULSE 91; RESP 18; TEMP 36.8; O2SAT 97; BMI 36.3
== END 2023-02-10 06:59 | disposition left against medical advice (07) ==
PROVIDERS: Emergency Provider Emergency Medicine; PCP Physician Assistant
DX: R21 Rash and other nonspecific skin eruption (principal)
CPT/HCPCS: 99281

== ENCOUNTER 2023-03-29 20:53 | Emergency (ER) | payer OTHER, MEDICAID, SELFPAY ==
[2023-03-29 21:04] VITALS: BP 143/93; PULSE 104; RESP 18; TEMP 36.2; O2SAT 97; BMI 36.8
--- NOTE | 2023-03-29 21:08 | DI.RAD.S_ITS ---
PROCEDURE: XR CHEST 2V INDICATIONS: chest pressure and congestion TECHNIQUE: 2 views of the chest were acquired. COMPARISON: [facility], , CHEST 1 VIEW, 09/19/2014, 16:36. FINDINGS: Surgical changes and devices: None. Lungs and pleura: Lungs are clear. No pleural effusions or pneumothorax. Mediastinum: Mediastinal contours are normal. Heart size is normal. Bones and chest wall: No suspicious bony abnormalities. Soft tissues appear unremarkable. IMPRESSION: 1. No acute cardiopulmonary disease. Dictated by: Arie Freeman M.D. on 03/29/2023 at 22:30 Approved by: Arie Freeman M.D. on 03/29/2023 at 22:31
[2023-03-29] MEDS: ACETAMINOPHEN 325 MG TABLET 975 MG PO (21:17)
[2023-03-29] MEDS: IBUPROFEN 400 MG TABLET 800 MG PO (21:17)
[2023-03-29 21:50] LABS: COVID19 -Nasal RAPID POSITIVE (Negative)
--- NOTE | 2023-03-30 16:06 | PC.NURSE ---
Pt called requesting results of chest x ray, given verbally. Encouraged to follow up with regular doctor or return if any concerns.
== END 2023-03-29 23:07 | disposition left against medical advice (07) ==
PROVIDERS: Emergency Provider Emergency Medicine; PCP Physician Assistant
DX: U07.1 COVID-19 (principal); R07.9 Chest pain, unspecified
CPT/HCPCS: 71046; 87635; 93005; 99283; C9803

== ENCOUNTER → 2023-07-07 09:37 | Outpatient (CLI) | payer OTHER, MEDICAID, SELFPAY ==
[2023-07-07 10:22] LABS: Influenza A - CEPHEID Flu A NEGATIVE (NEGATIVE); Influenza B - CEPHEID Flu B NEGATIVE (NEGATIVE); Respiratory Syncytial Virus POSITIVE (Negative)
[2023-07-07 10:23] LABS: COVID-19 CEPHEID 4-PLEX PCR Negative (Negative)
== END ==
PROVIDERS: PCP Physician Assistant; Visit Provider Nurse Practitioner Family
DX: R05.1 Acute cough (principal)
CPT/HCPCS: 0241U

== ENCOUNTER 2023-07-09 09:27 | Emergency (ER) | payer OTHER, MEDICAID, SELFPAY ==
[2023-07-09 09:42] VITALS: BP 125/91; PULSE 82; RESP 18; TEMP 37.6; O2SAT 96; BMI 36.0
--- NOTE | 2023-07-09 10:03 | ED_ITS ---
HPI - General Adult General Chief complaint: Upper Respiratory Symptoms Stated complaint: per pt has rsv, not getting better Time Seen by Provider: 07/09/23 09:29 Source: patient Mode of arrival: Ambulatory History of Present Illness HPI narrative: Patient is a 57-year-old female. She states that a couple days ago she was diagnosed with RSV. She states she feels like she has not getting any better. She is still having sinus congestion. Feel like her ears are full. Feels like she has an ear infection. She then stated that she feels like her cough is actually improving. She was having a headache. Related Data Home Medications Medication Instructions Recorded Confirmed bupropion HCl 150 mg 24 hr tablet, 150 mg PO QAM 07/07/23 07/07/23 extended release famotidine 20 mg tablet 20 mg PO BID 07/07/23 07/07/23 levothyroxine 125 mcg tablet 125 mcg PO DAILY 07/07/23 07/07/23 metformin 500 mg tablet 500 mg PO DAILY 07/07/23 07/07/23 Previous Rx's Medication Instructions Recorded albuterol sulfate 90 mcg/actuation 2 puff inhalation Q6H PRN 07/07/23 aerosol inhaler shortness of breath or wheezing #6.7 grams fluticasone propionate 50 1 spray intranasal Q12H #16 grams 07/07/23 mcg/actuation nasal spray,suspension (Flonase Allergy Relief) ipratropium bromide 42 mcg (0.06 2 spray intranasal TID 4 days #15 07/07/23 %) nasal spray mL prednisone 20 mg tablet 40 mg (2 x 20 mg) PO DAILY #6 tabs 07/07/23 Allergies Allergy/AdvReac Type Severity Reaction Status Date / Time oxycodone [From PERCOCET] Allergy Intermediate RASH Verified 07/09/23 09:47 Review of Systems Review of Systems ROS Unobtainable: All systems reviewed & are unremarkable except as noted in HPI and below Patient History Medical History Depression (Unknown) Herpes (~2010) Hepatitis C (~2010) Colon polyps (~09/2012) Hypothyroidism (Unknown) Surgical History Status post surgery (08/15/12) Social History marital status: Smoking Status: Current every day smoker Smoking Status: Current every day smoker tobacco type: cigarettes alcohol intake frequency: a few times a month Substance Use Type: does not use Exam Initial Vital Signs Initial Vital Signs: Vital Signs Temperature 99.7 F H 07/09/23 09:42 Pulse Rate 82 07/09/23 09:42 Respiratory Rate 18 07/09/23 09:42 Blood Pressure 125/91 H 07/09/23 09:42 Pulse Oximetry 96 07/09/23 09:42 Oxygen Delivery Method Room Air 07/09/23 09:42 Const General: No ill appearing HENMT Head: normal to inspection and normocephalic Ears: TM normal on the left and TM abnormal bulging on the right and with fluid behind the TM on the right; not dull and not erythematous Mouth: moist mucous membranes Resp Effort & Inspection: normal respiratory effort Auscultation: clear to auscultation bilaterally Cardio Rate: regular rate Rhythm: regular rhythm Skin General: no rashes or lesions noted Course Orders Ordered: Discontinued Medications Acetaminophen (Acetaminophen 325 Mg Tablet) 975 mg PO NOW ONE Stop: 07/09/23 10:05 Vital Signs Vital signs: Vital Signs - 8 hr 07/09/23 09:42 Temperature 99.7 F H Pulse Rate 82 Respiratory Rate 18 Blood Pressure 125/91 H Pulse Oximetry 96 Oxygen Delivery Method Room Air Medical Decision Making [facility] Narrative Medical decision making narrative: History and physical exam was consistent with her known RSV. Her lungs are clear. She is coughing. She does have fluid behind her right ear but there is no redness. No indication for antibiotics. Discussed with the patient things that she can try at home to include Tylenol and ibuprofen. We discussed other things to include decongestants/antihistamines. Discharge patient home with return precautions. Discharge Plan Departure Patient Disposition: Home Clinical Impression: Respiratory syncytial virus (RSV) Instructions: DI for Respiratory Syncytial Virus -- Adults Activity Restrictions/Additional Instructions: RSV is a virus that does not require antibiotics. It can take several days/weeks for symptoms to improve. You can take Tylenol/ibuprofen for any fevers or body aches. You can purchase this [id number]. You can also try antihistamine such as Zyrtec. This can also be purchased [id number]. Contact your primary doctor for a follow-up. Prescriptions: No Action bupropion HCl 150 mg tablet extended release 24 hr 150 mg PO QAM levothyroxine 125 mcg tablet 125 mcg PO DAILY famotidine 20 mg tablet 20 mg PO BID metformin 500 mg tablet 500 mg PO DAILY prednisone 20 mg tablet 40 mg PO DAILY Qty: 6 0RF albuterol sulfate 90 mcg/actuation HFA aerosol inhaler 2 puff inhalation Q6H PRN (Reason: shortness of breath or wheezing) Qty: 6.7 0RF ipratropium bromide 42 mcg (0.06 %) spray,non-aerosol 2 spray intranasal TID 4 Days Qty: 15 0RF Rx Instructions: administer into each nostril fluticasone propionate [Flonase Allergy Relief] 50 mcg/actuation spray,suspension 1 spray intranasal Q12H Qty: 16 0RF Rx Instructions: administer into each nostril Referrals: Marco Antnoio Head PA-C [Primary Care Provider] - Stand Alone Forms: Patient Portal/API
== END 2023-07-09 10:22 | disposition home or self-care (01) ==
LOC: ED 09:32
PROVIDERS: Emergency Provider Emergency Medicine; PCP Physician Assistant
DX: J98.8 Other specified respiratory disorders (principal); B97.4 Respiratory syncytial virus as the cause of diseases classified elsewhere; F17.210 Nicotine dependence, cigarettes, uncomplicated
CPT/HCPCS: 99281; 99282; 99283

== ENCOUNTER 2024-04-20 11:51 | Emergency (ER) | payer OTHER, MEDICAID, SELFPAY ==
[2024-04-20 12:04] VITALS: BP 117/82; PULSE 82; RESP 18; TEMP 36.5; O2SAT 98; BMI 31.7
--- NOTE | 2024-04-20 12:10 | DI.RAD.S_ITS ---
PROCEDURE: XR RIBS LT MIN 3V W CXR1V INDICATIONS: pain after fall TECHNIQUE: 2 views of the ribs were acquired, along with a single view chest. COMPARISON: None. FINDINGS: Surgical changes and devices: None. Bones and chest wall: No fractures or dislocations. No suspicious bony lesions. Overlying soft tissues appear unremarkable. Lungs and pleura: No pleural effusions or pneumothorax. Lungs appear clear. Mediastinum: Mediastinal contours appear normal. Heart size is normal. IMPRESSION: No displaced rib fracture or pneumothorax. Dictated by: Hermilo Hernandez M.D. on 04/20/2024 at 12:58 Approved by: Hermilo Hernandez M.D. on 04/20/2024 at 12:59
--- NOTE | 2024-04-20 13:04 | EKG_ITS ---
[address] [address] Test Date: 2024-04-20 Pat Name: Gisel Pete Department: [facility] Room: Gender: Female Rehab Spec: VILMA : 1965 Requested By: Order Number: [id number] Reading MD: Branodn Cook Measurements Intervals [place] Rate: 77 P: 54 SD: 142 QRS: -19 QRSD: 86 T: 44 QT: 408 QTc: 461 Interpretive Statements Normal sinus rhythm Electronically Signed On 04-24-2024 15:23:07 PDT by Brandon Cook
[2024-04-20 13:25] LABS: Add Manual Diff / Slide Review NO; Basophils Absolute Auto 0 /uL (0-100); Basophils Percent Auto 0.7 % (0-2); Eosinophils Absolute Auto 100 /uL (0-450); Eosinophils Percent Auto 2.3 % (2-4); Hematocrit 39.3 % (36-46); Hemoglobin 13.1 g/dL (12.0-16.0); Lymphocytes Absolute Auto 1800 /uL (1100-4500); Lymphocytes Percent Auto 32.9 % (25-40); Mean Corpuscular HGB Conc 33.5 % (30-36); Mean Corpuscular Hemoglobin 30.5 PG (26-34); Mean Corpuscular Volume 91.3 fL (80-100); Monocytes Absolute Auto 600 /uL (0-900); Monocytes Percent Auto 10.1 % (3-14); Neutrophils Absolute Auto 3000 /uL (1500-7000); Platelet Count 210 X10^3/uL (150-400); Red Cell Distribution Width 12.8 % (11.6-14.8); White Blood Cell Count 5.6 X10^3/uL (4.5-11.0)
[2024-04-20 13:33] LABS: Alanine Aminotransferase 17 IU/L (<35); Albumin 4.5 g/dL (3.5-5.0); Albumin Globulin Ratio 1.5 (1.0-2.8); Alkaline Phosphatase 56 U/L (38-126); Aspartate Aminotransferase 20 IU/L (14-36); Bilirubin Total 0.7 mg/dL (0.2-1.3); Blood Urea Nitrogen 12 mg/dL (7-17); Calcium 9.4 mg/dL (8.4-10.2); Carbon Dioxide 27 mmol/L (22-32); Chloride 107 mmol/L (98-107); Estimated Glomerular Filt Rate > 60 mL/min (>60); Glucose 106 mg/dL (70-100); HEMOLYSIS < 15 (0-50); Lipase 72 U/L (23-300); Potassium 3.8 mmol/L (3.4-5.1); Sodium 142 mmol/L (137-145); Total Protein 7.5 g/dL (6.3-8.2)
[2024-04-20 13:34] LABS: Ictotest Urine Negative (Negative)
[2024-04-20 13:40] LABS: Bacteria Urine Few (2-10); Culture Indicated Urine Cult Not Indicated; RBC Urine None Seen (0-5/HPF); Squamous Epithelial Cell Urine 1-5 /HPF (0-5/HPF); Urine Volume 10mL (spun); WBC Urine 1-5/HPF (0-5/HPF)
[2024-04-20 14:50] VITALS: BP 117/68; PULSE 78; RESP 18; TEMP 36.9; O2SAT 98
--- NOTE | 2024-04-20 14:53 | ED.ABDPAIN ---
HPI - Abdominal Pain <Arnulfo Jackson PA-C - Last Filed: 04/20/24 15:19> General Chief Complaint: Abdominal Pain Stated Complaint: thinks rupture spleen Time Seen by Provider: 04/20/24 13:25 Source: patient Mode of arrival: Wheelchair History of Present Illness HPI narrative: This is a 58-year-old female presents emergency department due to left upper quadrant abdominal pain after running into a couch about 5 days ago. She denies any nausea, vomiting, diarrhea, fevers, or any other concerning signs or symptoms. States the pain waxes and wanes with the worst being a 5/10 in severity. States that she was noticed a very small bruise to the left upper abdomen as well that has not worsened. 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 Denies any current UTI symptoms. Related Data Home Medications Medication Instructions Recorded Confirmed bupropion HCl 150 mg 24 hr tablet, 150 mg PO QAM 07/07/23 07/07/23 extended release famotidine 20 mg tablet 20 mg PO BID 07/07/23 07/07/23 levothyroxine 125 mcg tablet 125 mcg PO DAILY 07/07/23 07/07/23 metformin 500 mg tablet 500 mg PO DAILY 07/07/23 07/07/23 Previous Rx's Medication Instructions Recorded albuterol sulfate 90 mcg/actuation 2 puff inhalation Q6H PRN 07/07/23 aerosol inhaler shortness of breath or wheezing #6.7 grams fluticasone propionate 50 1 spray intranasal Q12H #16 grams 07/07/23 mcg/actuation nasal spray,suspension (Flonase Allergy Relief) prednisone 20 mg tablet 40 mg (2 x 20 mg) PO DAILY #6 tabs 07/07/23 Allergies Allergy/AdvReac Type Severity Reaction Status Date / Time oxycodone [From PERCOCET] Allergy Intermediate RASH Verified 07/09/23 09:47 Review of Systems <Arnulfo Jackson PA-C - Last Filed: 04/20/24 15:19> Review of Systems Narrative: GENERAL: Denies chills, fatigue, malaise, fever, sweats. HEENT: Denies sinus pain, ear pain, sore throat, difficulty swallowing, dizziness. RESPIRATORY: Denies dyspnea, cough, wheezing, hemoptysis, sputum. CARDIOVASCULAR: Denies chest pain, palpitations, orthopnea, edema, GASTROINTESTINAL: Reports left upper quadrant abdominal pain, otherwise Denies nausea, vomiting, abdominal pain, diarrhea, constipation, melena. : Denies dysuria, frequency, incontinence, hematuria, urinary retention. MUSCULOSKELETAL: denies weakness, joint pain, or bony pain SKIN: Denies rash, skin lesions, or other NEUROLOGIC: Denies weakness, headache, numbness, change in speech, confusion, seizures, incoordination. PSYCHIATRIC: No concerning psychosocial issues. 12 point review of systems is negative except for those stated above Patient History <Arnulfo Jackson PA-C - Last Filed: 04/20/24 15:19> Medical History (Updated 04/20/24 @ 15:09 by Arnulfo Jackson PA-C) Depression (Unknown) Herpes (~2010) Hepatitis C (~2010) Colon polyps (~09/2012) Hypothyroidism (Unknown) Surgical History Status post surgery (08/15/12) Social History marital status: Smoking Status: Current every day smoker Smoking Status: Current every day smoker tobacco type: cigarettes alcohol intake frequency: a few times a month Substance Use Type: does not use Exam <Arnulfo Jackson PA-C - Last Filed: 04/20/24 15:19> Narrative Exam Narrative: GENERAL: Well-developed patient, in mild distress. HEAD: Atraumatic. Normocephalic. EYES: Pupils equal round and reactive. Extraocular motions intact. No scleral icterus. No injection or drainage. ENT: Nose without bleeding, purulent drainage. Throat without erythema, tonsillar hypertrophy or exudate. Airway patent. NECK: Trachea midline. Non tender EXTREMITIES: No edema or joint tenderness. NEURO: AOx3. SKIN: No rash or erythema of visible areas abdomen: Mild left upper quadrant tenderness throughout palpation Initial Vital Signs Initial Vital Signs: Vital Signs Temperature 97.7 F 04/20/24 12:04 Pulse Rate 82 04/20/24 12:04 Respiratory Rate 18 04/20/24 12:04 Blood Pressure 117/82 04/20/24 12:04 Pulse Oximetry 98 04/20/24 12:04 Oxygen Delivery Method Room Air 04/20/24 12:04 <Lisa Charles MD - Last Filed: 04/20/24 18:13> Initial Vital Signs Initial Vital Signs: Vital Signs Temperature 97.7 F 04/20/24 12:04 Pulse Rate 82 04/20/24 12:04 Respiratory Rate 18 04/20/24 12:04 Blood Pressure 117/82 04/20/24 12:04 Pulse Oximetry 98 04/20/24 12:04 Oxygen Delivery Method Room Air 04/20/24 12:04 Course <Arnulfo Jackson PA-C - Last Filed: 04/20/24 15:19> Orders Ordered: ED Orders 04/20/24 12:10 XR ribs LT min 3V w CXR1V Stat EKG-12 Lead Stat 04/20/24 13:15 Complete Blood Count AUTO DIFF Stat Comprehensive Metabolic Panel Stat Lipase Stat 04/20/24 13:20 Ictotest Urine Stat Urine Culture Stat Urine Microscopic Stat Discontinued Medications Ondansetron HCl (Ondansetron 4 Mg/2 Ml Inj) 4 mg IV NOW PRN PRN Reason: Nausea And Vomiting Ondansetron HCl (Ondansetron 4 Mg Odt) 4 mg PO NOW PRN PRN Reason: Nausea And Vomiting Vital Signs Vital signs: Vital Signs - 8 hr 04/20/24 12:04 04/20/24 14:50 Temperature 97.7 F 98.4 F Pulse Rate 82 78 Respiratory Rate 18 18 Blood Pressure 117/82 117/68 Pulse Oximetry 98 98 Oxygen Delivery Method Room Air Room Air <Lisa Charles MD - Last Filed: 04/20/24 18:13> Orders Ordered: ED Orders 04/20/24 12:10 XR ribs LT min 3V w CXR1V Stat EKG-12 Lead Stat 04/20/24 13:15 Complete Blood Count AUTO DIFF Stat Comprehensive Metabolic Panel Stat Lipase Stat 04/20/24 13:20 Ictotest Urine Stat Urine Culture Stat Urine Microscopic Stat Discontinued Medications Ondansetron HCl (Ondansetron 4 Mg/2 Ml Inj) 4 mg IV NOW PRN PRN Reason: Nausea And Vomiting Ondansetron HCl (Ondansetron 4 Mg Odt) 4 mg PO NOW PRN PRN Reason: Nausea And Vomiting Vital Signs Vital signs: Vital Signs - 8 hr 04/20/24 12:04 04/20/24 14:50 Temperature 97.7 F 98.4 F Pulse Rate 82 78 Respiratory Rate 18 18 Blood Pressure 117/82 117/68 Pulse Oximetry 98 98 Oxygen Delivery Method Room Air Room Air MDM - Abdominal Pain <Arnulfo Jackson PA-C - Last Filed: 04/20/24 15:19> Lab Data 04/20/24 13:15 04/20/24 13:15 Labs: Lab Results 04/20/24 04/20/24 Range/Units 13:15 13:20 WBC 5.6 (4.5-11.0) X10^3/uL RBC 4.30 (4.0-5.2) X10^6/uL Hgb 13.1 (12.0-16.0) g/dL Hct 39.3 (36-46) % MCV 91.3 (80-100) fL MCH 30.5 (26-34) PG MCHC 33.5 (30-36) % RDW 12.8 (11.6-14.8) % Plt Count 210 (150-400) X10^3/uL Neut % (Auto) 54.0 (50-75) % Lymph % (Auto) 32.9 (25-40) % [place] % (Auto) 10.1 (3-14) % Eos % (Auto) 2.3 (2-4) % Baso % (Auto) 0.7 (0-2) % Neut # (Auto) 3000 (9149-0347) /uL Lymph # (Auto) 1800 (2573-9041) /uL [place] # (Auto) 600 (0-900) /uL Eos # (Auto) 100 (0-450) /uL Baso # (Auto) 0 (0-100) /uL Sodium 142 (137-145) mmol/L Potassium 3.8 (3.4-5.1) mmol/L Chloride 107 (98-107) mmol/L Carbon Dioxide 27 (22-32) mmol/L BUN 12 (7-17) mg/dL Creatinine 0.75 (0.52-1.04) mg/dL Estimated GFR > 60 (>60) mL/min BUN/Creatinine Ratio 16.0 (6-22) Glucose 106 H (70-100) mg/dL Calcium 9.4 (8.4-10.2) mg/dL Total Bilirubin 0.7 (0.2-1.3) mg/dL AST 20 (14-36) IU/L ALT 17 (<35) IU/L Alkaline Phosphatase 56 (38-126) U/L Total Protein 7.5 (6.3-8.2) g/dL Albumin 4.5 (3.5-5.0) g/dL Globulin 3.0 (1.7-4.1) g/dL Albumin/Globulin Ratio 1.5 (1.0-2.8) Lipase 72 (23-300) U/L Ur Bilirubin Confirm Negative (Negative) Urine RBC None seen (0-5/HPF) Urine WBC 1-5/hpf (0-5/HPF) Ur Squamous Epith Cells 1-5 /hpf (0-5/HPF) Urine Bacteria Few (2-10) H (None) Ur Culture Indicated? Cult not indicated Vol Urine Centrifuged 10ml (spun) Point of care testing: Urine Dip Bedside Urine Glucose Negative Bedside Urine Bilirubin + 1 Bedside Urine Ketone - Negative Urine Specific Pratt 1.025 Bedside Urine Occult Blood - Negative Bedside Urine pH 6.0 Bedside Urine Protein +/- 15 Bedside Urine Urobilinogen +/- 1mg Bedside Urine Nitrite - Negative Bedside Urine Leukocytes +/- 15 Esterase ECG Data Interpretation: EKG is normal sinus rhythm rate 77 and free of any signs of ischemia or ectopy. No ST segmental elevation or depression. No T wave inversions MDM Narrative Medical decision making narrative: ED course: This is a 58-year-old female presenting to the emergency department due waxing and waning mild left upper quadrant abdominal pain after running into a couch. Suspect soft tissue in nature. Lab work today was all very reassuring. No leukocytosis, no anemia, lipase within normal limits, all your lab work reassuring. Shared decision-making utilized and patient was elected for no CT scan for further evaluation as she was like to monitor the pain to see if it would improve. Patient was UA was positive for leukocytes but patient was not reporting any UTI symptoms. Recommended supportive care. CC: Left upper quadrant abdominal pain Complicating co-morbidities: History of colon polyps and hepatitis-C Data collected from: Previous notes Medical records reviewed: Patient was last seen 9 months ago due to URI symptoms. History of depression, hepatitis-C, colon polyps, hypothyroidism. Differential considered, but not limited to: Intra-abdominal injury, soft tissue injury Exam documented above, pertinent findings include: Some tenderness to palpation left upper quadrant Lab Test results independently reviewed as above. Pertinent findings: All lab work reassuring Imaging studies independently reviewed: None obtained Scores Used: None MIPS Elements: None Consultations: None Treatments: None Re-evaluations: None Discussion: Discussed plan with the patient was comfortable with the plan Diagnosis: Abdominal pain Disposition: see below, along with detailed discharge instructions that have been reviewed with patient as well as indications for ED re-evaluation and additional outpatient follow up <Lisa Charles MD - Last Filed: 04/20/24 18:13> Lab Data Labs: Lab Results 04/20/24 04/20/24 Range/Units 13:15 13:20 WBC 5.6 (4.5-11.0) X10^3/uL RBC 4.30 (4.0-5.2) X10^6/uL Hgb 13.1 (12.0-16.0) g/dL Hct 39.3 (36-46) % MCV 91.3 (80-100) fL MCH 30.5 (26-34) PG MCHC 33.5 (30-36) % RDW 12.8 (11.6-14.8) % Plt Count 210 (150-400) X10^3/uL Neut % (Auto) 54.0 (50-75) % Lymph % (Auto) 32.9 (25-40) % [place] % (Auto) 10.1 (3-14) % Eos % (Auto) 2.3 (2-4) % Baso % (Auto) 0.7 (0-2) % Neut # (Auto) 3000 (7819-8194) /uL Lymph # (Auto) 1800 (6270-5625) /uL [place] # (Auto) 600 (0-900) /uL Eos # (Auto) 100 (0-450) /uL Baso # (Auto) 0 (0-100) /uL Sodium 142 (137-145) mmol/L Potassium 3.8 (3.4-5.1) mmol/L Chloride 107 (98-107) mmol/L Carbon Dioxide 27 (22-32) mmol/L BUN 12 (7-17) mg/dL Creatinine 0.75 (0.52-1.04) mg/dL Estimated GFR > 60 (>60) mL/min BUN/Creatinine Ratio 16.0 (6-22) Glucose 106 H (70-100) mg/dL Calcium 9.4 (8.4-10.2) mg/dL Total Bilirubin 0.7 (0.2-1.3) mg/dL AST 20 (14-36) IU/L ALT 17 (<35) IU/L Alkaline Phosphatase 56 (38-126) U/L Total Protein 7.5 (6.3-8.2) g/dL Albumin 4.5 (3.5-5.0) g/dL Globulin 3.0 (1.7-4.1) g/dL Albumin/Globulin Ratio 1.5 (1.0-2.8) Lipase 72 (23-300) U/L Ur Bilirubin Confirm Negative (Negative) Urine RBC None seen (0-5/HPF) Urine WBC 1-5/hpf (0-5/HPF) Ur Squamous Epith Cells 1-5 /hpf (0-5/HPF) Urine Bacteria Few (2-10) H (None) Ur Culture Indicated? Cult not indicated Vol Urine Centrifuged 10ml (spun) Point of care testing: Urine Dip Bedside Urine Glucose Negative Bedside Urine Bilirubin + 1 Bedside Urine Ketone - Negative Urine Specific Pratt 1.025 Bedside Urine Occult Blood - Negative Bedside Urine pH 6.0 Bedside Urine Protein +/- 15 Bedside Urine Urobilinogen +/- 1mg Bedside Urine Nitrite - Negative Bedside Urine Leukocytes +/- 15 Esterase Discharge Plan Departure Patient Disposition: Home Clinical Impression: Abdominal pain Activity Restrictions/Additional Instructions: Thank you for coming to the [facility] Emergency Department today. As we discussed your lab work today was all reassuring. There was no evidence of infection, bleeding, or any other intra-abdominal abnormality. I suspect the pain in you are experiencing should improve over the next week or so with anti-inflammatories and rest. Please return to the emergency department if you develop any severe abdominal pain, vomiting, or any other concerning signs or symptoms. I hope you feel better soon. Please follow up with your primary care provider within a week if your symptoms continue. If you do not have a primary care provider please contact the [facility] Resource line at [phone]. They will ask some questions about your medical history and help you get set up with a provider in the community. Prescriptions: No Action bupropion HCl 150 mg tablet extended release 24 hr 150 mg PO QAM levothyroxine 125 mcg tablet 125 mcg PO DAILY famotidine 20 mg tablet 20 mg PO BID metformin 500 mg tablet 500 mg PO DAILY prednisone 20 mg tablet 40 mg PO DAILY Qty: 6 0RF albuterol sulfate 90 mcg/actuation HFA aerosol inhaler 2 puff inhalation Q6H PRN (Reason: shortness of breath or wheezing) Qty: 6.7 0RF fluticasone propionate [Flonase Allergy Relief] 50 mcg/actuation spray,suspension 1 spray intranasal Q12H Qty: 16 0RF Rx Instructions: administer into each nostril Referrals: Marco Antonio Head PA-C [Primary Care Provider] - Stand Alone Forms: Patient Portal/API ED Sign-out <Lisa Charles MD - Last Filed: 04/20/24 18:13> Cosign ED Attending Cosignature Attestation: I was immediately available in the department for consultation throughout this patient's visit. Lisa Charles MD
== END 2024-04-20 15:12 | disposition home or self-care (01) ==
PROVIDERS: Emergency Medicine; Emergency Provider Physician Assistant Medical; PCP Physician Assistant
DX: R10.12 Left upper quadrant pain (principal)
CPT/HCPCS: 36415; 71101; 80053; 81003; 81015; 83690; 85025; 87086; 93005; 99282; 99284

== ENCOUNTER 2024-05-03 23:24 | Emergency (ER) | payer OTHER, MEDICAID, SELFPAY ==
[2024-05-03 23:33] VITALS: PULSE 79; O2SAT 97
[2024-05-03 23:38] VITALS: BP 127/81; PULSE 79; O2SAT 98
[2024-05-03 23:40] VITALS: BP 121/81; PULSE 80; RESP 16; TEMP 36.4; O2SAT 97; BMI 32.5
[2024-05-04] VITALS: PULSE 75; O2SAT 98
--- NOTE | 2024-05-04 00:04 | ED_ITS ---
HPI - Abdominal Pain General Chief Complaint: Urogenital-Female Stated Complaint: possible kidney infection [facility] Time Seen by Provider: 05/03/24 23:32 Source: patient Mode of arrival: Ambulatory History of Present Illness HPI narrative: 58-year-old female complains of left-sided abdominal pain, left against medical advice earlier today from [facility], unclear diagnosis per patient, has ongoing left-sided abdominal discomfort for the last 2 weeks per her report now, having clear watery stools this last week or so, complains of same left- sided abdominal discomfort. Loose stool yesterday without black or red color, no fevers or chills. Denies painful urination or frequent urination. Denies flank pain. Has reported history of prior kidney stone. Has left upper quadrant area port from bariatric surgery remotely performed in [place]. She denies cough, shortness of breath, chest pain. Related Data Home Medications Medication Instructions Recorded Confirmed bupropion HCl 150 mg 24 hr tablet, 150 mg PO QAM 07/07/23 07/07/23 extended release famotidine 20 mg tablet 20 mg PO BID 07/07/23 07/07/23 levothyroxine 125 mcg tablet 125 mcg PO DAILY 07/07/23 07/07/23 metformin 500 mg tablet 500 mg PO DAILY 07/07/23 07/07/23 Previous Rx's Medication Instructions Recorded albuterol sulfate 90 mcg/actuation 2 puff inhalation Q6H PRN 07/07/23 aerosol inhaler shortness of breath or wheezing #6.7 grams fluticasone propionate 50 1 spray intranasal Q12H #16 grams 07/07/23 mcg/actuation nasal spray,suspension (Flonase Allergy Relief) prednisone 20 mg tablet 40 mg (2 x 20 mg) PO DAILY #6 tabs 07/07/23 Allergies Allergy/AdvReac Type Severity Reaction Status Date / Time oxycodone [From PERCOCET] Allergy Intermediate RASH Verified 05/03/24 23:56 Review of Systems Review of Systems Narrative: see HPI Patient History Medical History (Updated 05/04/24 @ 01:17 by Alberto Jesus MD) Depression (Unknown) Herpes (~2010) Hepatitis C (~2010) Colon polyps (~09/2012) Hypothyroidism (Unknown) Surgical History Status post surgery (08/15/12) Social History marital status: Smoking Status: Current every day smoker Smoking Status: Current every day smoker tobacco type: cigarettes alcohol intake frequency: a few times a month Substance Use Type: does not use Exam Narrative Exam Narrative: GENERAL: Well-developed patient, in mild distress. HEAD: Atraumatic. Normocephalic. EYES: Pupils equal round and reactive. Extraocular motions intact. No scleral icterus. No injection or drainage. ENT: Nose without bleeding, purulent drainage. Throat without erythema, tonsillar hypertrophy or exudate. Airway patent. NECK: Trachea midline. Non tender CARDIOVASCULAR: Regular rate and rhythm without murmurs, gallops, or rubs. RESPIRATORY: Clear to auscultation. Breath sounds equal bilaterally. No wheezes, rales, or rhonchi. GASTROINTESTINAL: Abdomen soft, left upper palpable abdominal mass patient states is her port from bariatric surgery in [place], not particularly tender in that area, nondistended. EXTREMITIES: No edema or joint tenderness. BACK: Nontender without deformity or crepitance. No flank tenderness. NEURO: AOx3. Motor functions grossly nonfocal SKIN: No rash or erythema of visible areas Initial Vital Signs Initial Vital Signs: Vital Signs Pulse Rate 79 05/03/24 23:33 Pulse Oximetry 97 05/03/24 23:33 Course Orders Ordered: ED Orders 05/04/24 00:20 Ammonia (NH3) Stat Complete Blood Count AUTO DIFF Stat Comprehensive Metabolic Panel Stat Lipase Stat Vital Signs Vital signs: Vital Signs - 8 hr 05/03/24 23:33 05/03/24 23:38 05/03/24 23:38 Temperature Pulse Rate 79 79 Respiratory Rate Blood Pressure 127/81 Pulse Oximetry 97 98 Oxygen Delivery Method 05/03/24 23:40 05/04/24 00:00 05/04/24 00:22 Temperature 97.6 F Pulse Rate 80 75 68 Respiratory Rate 16 Blood Pressure 121/81 Pulse Oximetry 97 98 97 Oxygen Delivery Method Room Air 05/04/24 00:22 05/04/24 00:30 05/04/24 00:30 Temperature Pulse Rate 64 Respiratory Rate 18 Blood Pressure 126/81 124/77 Pulse Oximetry 97 Oxygen Delivery Method MDM - Abdominal Pain Lab Data Attestation: I reviewed the patient's lab results. Lab results narrative: White blood cell count 4800, hemoglobin 12.3, platelets adequate. Basic metabolic panel unremarkable, liver functions normal, lipase normal. Urinalysis pending 05/04/24 00:20 05/04/24 00:20 Labs: Lab Results 05/04/24 Range/Units 00:20 WBC 5.8 (4.5-11.0) X10^3/uL RBC 4.07 (4.0-5.2) X10^6/uL Hgb 12.3 (12.0-16.0) g/dL Hct 37.0 (36-46) % MCV 91.0 (80-100) fL MCH 30.3 (26-34) PG MCHC 33.3 (30-36) % RDW 12.6 (11.6-14.8) % Plt Count 229 (150-400) X10^3/uL Neut % (Auto) 48.7 L (50-75) % Lymph % (Auto) 38.3 (25-40) % [place] % (Auto) 9.7 (3-14) % Eos % (Auto) 2.6 (2-4) % Baso % (Auto) 0.7 (0-2) % Neut # (Auto) 2800 (7259-3400) /uL Lymph # (Auto) 2200 (9410-7164) /uL [place] # (Auto) 600 (0-900) /uL Eos # (Auto) 100 (0-450) /uL Baso # (Auto) 0 (0-100) /uL Sodium 138 (137-145) mmol/L Potassium 3.5 (3.4-5.1) mmol/L Chloride 107 (98-107) mmol/L Carbon Dioxide 27 (22-32) mmol/L BUN 14 (7-17) mg/dL Creatinine 0.77 (0.52-1.04) mg/dL Estimated GFR > 60 (>60) mL/min BUN/Creatinine Ratio 18.2 (6-22) Glucose 101 H (70-100) mg/dL Calcium 9.2 (8.4-10.2) mg/dL Total Bilirubin 0.3 (0.2-1.3) mg/dL AST 19 (14-36) IU/L ALT 15 (<35) IU/L Alkaline Phosphatase 61 (38-126) U/L Ammonia < 9 L (9-30) umol/L Total Protein 6.7 (6.3-8.2) g/dL Albumin 3.5 (3.5-5.0) g/dL Globulin 3.2 (1.7-4.1) g/dL Albumin/Globulin Ratio 1.1 (1.0-2.8) Lipase 94 (23-300) U/L MDM Narrative Medical decision making narrative: 58-year-old female with history of remote lap band procedure [place] awaiting possible elective removal through surgery at [facility], has 2 weeks' duration ongoing left-sided abdominal pain, [place] [facility] [place] We will attempts to obtain records [facility]. Afebrile, sirs screen negative. Labs sent from today. Await records from [facility]. Records review from [facility] earlier today 05/03/2024, 12:30 p.m. triage time. Noted to have been referred for ongoing left flank pain by urgent care, saw Dr. Palomares of surgery earlier today regarding possible future removal of gastric band, history of prior surgeries included cholecystectomy, lap gastric banding procedure, EGD, prior renal stenting. There was mention of [address] abdomen and pelvis study that was reportedly negative. Patient had lab work sent, included white blood cell count 5200, hemoglobin 12, platelets [id number]. Normal appearing basic metabolic panel, liver functions unremarkable. Alcohol level negative, lactate normal 0.8 noted, procalcitonin normal. ED provider apparently did phone consultation with Dr. Palomares of surgery, when Dr. Palomares reportedly stated, she seemed like she was at her normal baseline/oriented. She has long history of forgetfulness, cancelations, being hard to get a hold of, delayed follow up, etc.. ? Patient apparently did not want to stay any longer, unclear if imaging or other testing was recommended, left against medical advice. Serum studies unremarkable, urinalysis pending. Patient did not want to stay any longer, left against medical advice Discharge Plan Departure Patient Disposition: Left Against Medical Advice Clinical Impression: Left against medical advice, Left upper quadrant abdominal pain Activity Restrictions/Additional Instructions: Left upper quadrant abdominal pain, against medical advice discharge hospital stay [facility] on 05/03 24 noted, still having left-sided abdominal pain, labs ordered here, you did not want to stay for results, decided that you would leave, you would be leaving against medical advice, unclear diagnosis. Consequences of leaving against medical advice without clear diagnoses or further workup could result in worsening condition, sepsis, infection, some other severe diagnosis could keep evolving, leading to worsening illness, disability, loss of independence, even theoretically . You did not want to have any further workup, you seemed to express understanding of these consequences. Prescriptions: No Action bupropion HCl 150 mg tablet extended release 24 hr 150 mg PO QAM levothyroxine 125 mcg tablet 125 mcg PO DAILY famotidine 20 mg tablet 20 mg PO BID metformin 500 mg tablet 500 mg PO DAILY prednisone 20 mg tablet 40 mg PO DAILY Qty: 6 0RF albuterol sulfate 90 mcg/actuation HFA aerosol inhaler 2 puff inhalation Q6H PRN (Reason: shortness of breath or wheezing) Qty: 6.7 0RF fluticasone propionate [Flonase Allergy Relief] 50 mcg/actuation spray,suspension 1 spray intranasal Q12H Qty: 16 0RF Rx Instructions: administer into each nostril Referrals: Marco Antonio Head PA-C [Primary Care Provider] - Stand Alone Forms: Patient Portal/API, Against Medical Advice
[2024-05-04 00:22] VITALS: BP 126/81; PULSE 68; O2SAT 97
[2024-05-04 00:30] VITALS: BP 124/77; PULSE 64; RESP 18; O2SAT 97
[2024-05-04 00:31] LABS: Add Manual Diff / Slide Review NO; Basophils Absolute Auto 0 /uL (0-100); Basophils Percent Auto 0.7 % (0-2); Eosinophils Absolute Auto 100 /uL (0-450); Eosinophils Percent Auto 2.6 % (2-4); Hemoglobin 12.3 g/dL (12.0-16.0); Lymphocytes Absolute Auto 2200 /uL (1100-4500); Lymphocytes Percent Auto 38.3 % (25-40); Mean Corpuscular HGB Conc 33.3 % (30-36); Mean Corpuscular Hemoglobin 30.3 PG (26-34); Monocytes Absolute Auto 600 /uL (0-900); Monocytes Percent Auto 9.7 % (3-14); Neutrophils Absolute Auto 2800 /uL (1500-7000); Neutrophils Percent Auto 48.7 % (50-75); Platelet Count 229 X10^3/uL (150-400); Red Blood Cell Count 4.07 X10^6/uL (4.0-5.2); Red Cell Distribution Width 12.6 % (11.6-14.8); White Blood Cell Count 5.8 X10^3/uL (4.5-11.0)
[2024-05-04 00:42] LABS: Alanine Aminotransferase 15 IU/L (<35); Albumin 3.5 g/dL (3.5-5.0); Albumin Globulin Ratio 1.1 (1.0-2.8); Alkaline Phosphatase 61 U/L (38-126); Ammonia (NH3) < 9 umol/L (9-30); Aspartate Aminotransferase 19 IU/L (14-36); BUN Creatinine Ratio 18.2 (6-22); Bilirubin Total 0.3 mg/dL (0.2-1.3); Blood Urea Nitrogen 14 mg/dL (7-17); Calcium 9.2 mg/dL (8.4-10.2); Carbon Dioxide 27 mmol/L (22-32); Chloride 107 mmol/L (98-107); Estimated Glomerular Filt Rate > 60 mL/min (>60); Globulin 3.2 g/dL (1.7-4.1); Glucose 101 mg/dL (70-100); HEMOLYSIS < 15 (0-50); Lipase 94 U/L (23-300); Potassium 3.5 mmol/L (3.4-5.1); Sodium 138 mmol/L (137-145); Total Protein 6.7 g/dL (6.3-8.2)
== END 2024-05-04 01:22 | disposition left against medical advice (07) ==
PROVIDERS: Emergency Provider Emergency Medicine; PCP Physician Assistant
DX: R10.12 Left upper quadrant pain (principal)
CPT/HCPCS: 36415; 80053; 82140; 83690; 85025; 99283

== ENCOUNTER 2024-06-22 19:49 | Emergency (ER) | payer OTHER, SELFPAY ==
[2024-06-22] VITALS (7 sets, daily range): BP systolic 113–154; BP diastolic 79–89; PULSE 74–98; RESP 16; TEMP 36.4; O2SAT 93–99; BMI 33.5
--- NOTE | 2024-06-22 20:11 | DI.RAD.S_ITS ---
PROCEDURE: XR ACUTE ABDOMEN SERIES INDICATIONS: abdomial pain/recent sugery hasnt pooped in a week or longer TECHNIQUE: One view chest and two views of the abdomen were acquired. COMPARISON: None. FINDINGS: Surgical changes and devices: None. Chest: Lungs are clear. Heart size is normal. No pleural effusions. No pneumoperitoneum. Abdomen: Bowel gas pattern is normal. No suspicious calcifications. Visualized solid organ contours appear normal. Large colonic stool load. Bones: No suspicious bony lesions. IMPRESSION: Large colonic stool load without obstruction. Dictated by: Kirill Allison M.D. on 06/22/2024 at 20:39 Approved by: Kirill Allison M.D. on 06/22/2024 at 20:39
--- NOTE | 2024-06-22 20:48 | ED.ABDPAIN ---
HPI - Abdominal Pain General Chief Complaint: Abdominal Pain Stated Complaint: sx 1wk ago, constipation, not getting better Time Seen by Provider: 06/22/24 20:24 Source: patient Mode of arrival: Ambulatory History of Present Illness HPI narrative: 58-year-old female presents for 1 week of constipation, fatigue. On 06/[address] [facility] for robotic lap band removal. Patient had lap band placed in [place] in 1997. She was admitted to the hospital, where she was kept for 2 days due to poorly-controlled pain as well as reported difficulty in performing ADLs. Patient discharged on 06/17. Patient states that she has been sleeping a lot and feels very fatigued. She has not had a bowel movement in at least 1 week. She has a good appetite and is eating normally, still passing gas, but has not had a bowel movement. She states that she was taking a laxative that was prescribed at discharge from the hospital. Also reports frustration that there is no one at home to help her post surgery. Related Data Home Medications Medication Instructions Recorded Confirmed bupropion HCl 150 mg 24 hr tablet, 150 mg PO QAM 07/07/23 07/07/23 extended release famotidine 20 mg tablet 20 mg PO BID 07/07/23 07/07/23 levothyroxine 125 mcg tablet 125 mcg PO DAILY 07/07/23 07/07/23 metformin 500 mg tablet 500 mg PO DAILY 07/07/23 07/07/23 Previous Rx's Medication Instructions Recorded albuterol sulfate 90 mcg/actuation 2 puff inhalation Q6H PRN 07/07/23 aerosol inhaler shortness of breath or wheezing #6.7 grams fluticasone propionate 50 1 spray intranasal Q12H #16 grams 07/07/23 mcg/actuation nasal spray,suspension (Flonase Allergy Relief) prednisone 20 mg tablet 40 mg (2 x 20 mg) PO DAILY #6 tabs 07/07/23 Allergies Allergy/AdvReac Type Severity Reaction Status Date / Time oxycodone [From PERCOCET] Allergy Intermediate RASH Verified 06/22/24 20:06 Patient History Medical History Depression (Unknown) Herpes (~2010) Hepatitis C (~2010) Colon polyps (~09/2012) Hypothyroidism (Unknown) Surgical History Status post surgery (08/15/12) Social History marital status: Smoking Status: Current every day smoker Smoking Status: Current every day smoker tobacco type: cigarettes alcohol intake frequency: a few times a month Exam Initial Vital Signs Initial Vital Signs: Vital Signs Temperature 97.6 F 06/22/24 20:01 Pulse Rate 98 H 06/22/24 20:01 Respiratory Rate 16 06/22/24 20:01 Blood Pressure 154/89 H 06/22/24 20:01 Pulse Oximetry 99 06/22/24 20:01 Oxygen Delivery Method Room Air 06/22/24 20:01 Const: Awake, alert, tearful, nontoxic appearing Cardiac: regular rate, regular rhythm RESP: unlabored, clear bilaterally, no wheezing GI: Soft, nontender, nondistended Skin: abdominal surgical sites clean, dry, intact, healing well Neuro: AO x3, CN II-XII grossly intact, moves all extremities Course Orders Ordered: ED Orders 06/22/24 20:11 XR acute abdomen series Stat 06/22/24 20:54 CBC Auto Diff [Complete Blood Count AUTO DIFF] Stat CMP [Comprehensive Metabolic Panel] Stat Lactate (Lactic Acid) Stat Discontinued Medications Glycerin (Glycerin Supp Adult 1 Supp) 1 each LA NOW ONE Stop: 06/22/24 20:48 Last Admin: 06/22/24 21:30 Dose: 1 each Documented By: MPO Lactulose (Lactulose 20 Gm/30 Ml Solution) 20 gm PO NOW ONE Stop: 06/22/24 20:48 Last Admin: 06/22/24 21:30 Dose: 20 gm Documented By: MPO Polyethylene Glycol/Electrolytes ([id number]/Sod Sulf,Bicarb,Cl/Kcl 4,000 Ml Solution) 4,000 ml PO NOW ONE Stop: 06/22/24 20:48 Last Admin: 06/22/24 21:31 Dose: 4,000 ml Documented By: MPO Vital Signs Vital signs: Vital Signs - 8 hr 06/22/24 20:01 06/22/24 20:30 06/22/24 20:31 Temperature 97.6 F Pulse Rate 98 H 74 74 Respiratory Rate 16 Blood Pressure 154/89 H Pulse Oximetry 99 97 97 Oxygen Delivery Method Room Air 06/22/24 20:31 06/22/24 21:00 06/22/24 21:00 Temperature Pulse Rate 77 Respiratory Rate Blood Pressure 135/87 126/81 Pulse Oximetry 93 Oxygen Delivery Method 06/22/24 21:30 06/22/24 21:30 06/22/24 21:33 Temperature Pulse Rate 84 91 H Respiratory Rate Blood Pressure 113/79 Pulse Oximetry 94 94 Oxygen Delivery Method 06/22/24 22:00 Temperature Pulse Rate Respiratory Rate Blood Pressure 138/88 Pulse Oximetry Oxygen Delivery Method MDM - Abdominal Pain Differential Diagnosis Differential diagnosis: Likely abdominal pain, constipation and gastroenteritis Lab Data 06/22/24 20:54 06/22/24 20:54 Labs: Lab Results 06/22/24 Range/Units 20:54 WBC 6.0 (4.5-11.0) X10^3/uL RBC 4.18 (4.0-5.2) X10^6/uL Hgb 12.5 (12.0-16.0) g/dL Hct 38.1 (36-46) % MCV 91.0 (80-100) fL MCH 29.8 (26-34) PG MCHC 32.7 (30-36) % RDW 12.7 (11.6-14.8) % Plt Count 265 (150-400) X10^3/uL Neut % (Auto) 48.2 L (50-75) % Lymph % (Auto) 32.2 (25-40) % [place] % (Auto) 10.2 (3-14) % Eos % (Auto) 8.7 H (2-4) % Baso % (Auto) 0.7 (0-2) % Neut # (Auto) 2900 (7376-4155) /uL Lymph # (Auto) 1900 (3410-2769) /uL [place] # (Auto) 600 (0-900) /uL Eos # (Auto) 500 H (0-450) /uL Baso # (Auto) 0 (0-100) /uL Sodium 137 (137-145) mmol/L Potassium 3.8 (3.4-5.1) mmol/L Chloride 107 (98-107) mmol/L Carbon Dioxide 24 (22-32) mmol/L BUN 17 (7-17) mg/dL Creatinine 0.72 (0.52-1.04) mg/dL Estimated GFR > 60 (>60) mL/min BUN/Creatinine Ratio 23.6 H (6-22) Glucose 95 (70-100) mg/dL Lactate 1.0 (0.7-2.1) mmol/L Calcium 9.8 (8.4-10.2) mg/dL Total Bilirubin 0.4 (0.2-1.3) mg/dL AST 38 H (14-36) IU/L ALT 32 (<35) IU/L Alkaline Phosphatase 69 (38-126) U/L Total Protein 7.1 (6.3-8.2) g/dL Albumin 3.6 (3.5-5.0) g/dL Globulin 3.5 (1.7-4.1) g/dL Albumin/Globulin Ratio 1.0 (1.0-2.8) Imaging Data Abdominal x-ray: Radiologist's Impression: PROCEDURE: XR ACUTE ABDOMEN SERIES INDICATIONS: abdomial pain/recent sugery hasnt pooped in a week or longer TECHNIQUE: One view chest and two views of the abdomen were acquired. COMPARISON: None. FINDINGS: Surgical changes and devices: None. Chest: Lungs are clear. Heart size is normal. No pleural effusions. No pneumoperitoneum. Abdomen: Bowel gas pattern is normal. No suspicious calcifications. Visualized solid organ contours appear normal. Large colonic stool load. Bones: No suspicious bony lesions. IMPRESSION: Large colonic stool load without obstruction. Dictated by: Kirill Allison M.D. on 06/22/2024 at 20:39 Approved by: Kirill Allison M.D. on 06/22/2024 at 20:39 [facility] Narrative Medical decision making narrative: Patient with constipation. Patient states that her last bowel movement was before she had surgery on June 15. She was on narcotic pain medications and states that she was nearly out of the medication. She was eating but not having a bowel movement. She was not vomiting in his still passing gas. Unlikely be obstructed. Abdomen soft, nondistended, surgical sites are healing well, there was no tenderness to light or deep palpation on exam. Patient noted to be poorly tolerating her pain during admission and it was affecting her ADLs. This appears to be contributing to patient's presentation today as she does state that she was no one at home to help her after her surgery. Abdomen x-ray shows large stool burden without signs of obstruction. Laboratory work normal. Patient received p.o. lactulose and GoLYTELY, as well as glycerin suppository. Patient had small bowel movement in the emergency department and stated that she would like to continue her bowel regimen at home in her own bathroom. Patient was counseled to follow up with her surgeon. It was recommended that she decrease her narcotic intake as this will worsen her constipation. Discharge Plan Departure Patient Disposition: Home Clinical Impression: Constipation Instructions: DI for Constipation Activity Restrictions/Additional Instructions: Your x-ray did not show any signs of obstruction. Your laboratory work shows normal hemoglobin, normal blood counts, normal electrolytes. I do not know the cause of your persistent fatigue following your surgery, however this does not seem to be related to your constipation. Your sutures appear to be healing well right now. Opiates worsen constipation, taper your opiate use and try to use Tylenol and ibuprofen to control your pain. If you need more pain medications call your surgeon's office for refill. At home drink the GoLYTELY 8 oz every 2-3 hours until you have a bowel movement. Goal is for 1 soft bowel movement daily. You may also use senna Prescriptions: No Action bupropion HCl 150 mg tablet extended release 24 hr 150 mg PO QAM levothyroxine 125 mcg tablet 125 mcg PO DAILY famotidine 20 mg tablet 20 mg PO BID metformin 500 mg tablet 500 mg PO DAILY prednisone 20 mg tablet 40 mg PO DAILY Qty: 6 0RF albuterol sulfate 90 mcg/actuation HFA aerosol inhaler 2 puff inhalation Q6H PRN (Reason: shortness of breath or wheezing) Qty: 6.7 0RF fluticasone propionate [Flonase Allergy Relief] 50 mcg/actuation spray,suspension 1 spray intranasal Q12H Qty: 16 0RF Rx Instructions: administer into each nostril Referrals: Marco Antonio Head PA-C [Primary Care Provider] - Stand Alone Forms: Patient Portal/API/Survey
[2024-06-22 21:02] LABS: Add Manual Diff / Slide Review NO; Basophils Absolute Auto 0 /uL (0-100); Basophils Percent Auto 0.7 % (0-2); Eosinophils Absolute Auto 500 /uL (0-450); Eosinophils Percent Auto 8.7 % (2-4); Hematocrit 38.1 % (36-46); Hemoglobin 12.5 g/dL (12.0-16.0); Lymphocytes Absolute Auto 1900 /uL (1100-4500); Lymphocytes Percent Auto 32.2 % (25-40); Mean Corpuscular HGB Conc 32.7 % (30-36); Mean Corpuscular Hemoglobin 29.8 PG (26-34); Monocytes Absolute Auto 600 /uL (0-900); Monocytes Percent Auto 10.2 % (3-14); Neutrophils Absolute Auto 2900 /uL (1500-7000); Neutrophils Percent Auto 48.2 % (50-75); Platelet Count 265 X10^3/uL (150-400); Red Blood Cell Count 4.18 X10^6/uL (4.0-5.2); Red Cell Distribution Width 12.7 % (11.6-14.8)
[2024-06-22 21:23] LABS: Alanine Aminotransferase 32 IU/L (<35); Albumin 3.6 g/dL (3.5-5.0); Alkaline Phosphatase 69 U/L (38-126); Aspartate Aminotransferase 38 IU/L (14-36); BUN Creatinine Ratio 23.6 (6-22); Bilirubin Total 0.4 mg/dL (0.2-1.3); Blood Urea Nitrogen 17 mg/dL (7-17); Calcium 9.8 mg/dL (8.4-10.2); Carbon Dioxide 24 mmol/L (22-32); Chloride 107 mmol/L (98-107); Estimated Glomerular Filt Rate > 60 mL/min (>60); Globulin 3.5 g/dL (1.7-4.1); Glucose 95 mg/dL (70-100); HEMOLYSIS < 15 (0-50); Potassium 3.8 mmol/L (3.4-5.1); Sodium 137 mmol/L (137-145); Total Protein 7.1 g/dL (6.3-8.2)
[2024-06-22] MEDS: LACTULOSE 20 GM/30 ML SOLUTION PO (21:30)
[2024-06-22] MEDS: GLYCERIN SUPP ADULT 1 SUPP 1 EACH PR (21:30)
[2024-06-22] MEDS: PEG3350/SOD SULF,BICARB,CL/KCL 4,000 ML SOLUTION 4000 ML PO (21:31)
--- NOTE | 2024-06-22 22:26 | PC.NURSE ---
Pt ambulated to bathroom independently.
--- NOTE | 2024-06-22 22:41 | PC.NURSE ---
SUPERVISOR ADVICE Note: This SUPERVISOR ADVICE went into pt's room to help with removing IV and preparing pt to go home. Pt voiced complaints about being tied to the bed and not being informed about any buttons to press to call staff over when she needed to use the restroom. This SUPERVISOR ADVICE looked at bed rail and pt call button was tied to bed rail. I informed pt that the call button was on the rail, but pt seemed frustrated about her situation and stated that she didn't see the button at the time. Nurse was notified.
== END 2024-06-22 22:54 | disposition home or self-care (01) ==
PROVIDERS: Emergency Provider Emergency Medicine; PCP Physician Assistant
DX: K59.00 Constipation, unspecified (principal); R53.83 Other fatigue; Z98.890 Other specified postprocedural states
CPT/HCPCS: 36415; 74022; 80053; 83605; 85025; 99284

== ENCOUNTER → 2025-06-01 17:38 | Outpatient (CLI) | payer OTHER, SELFPAY ==
--- NOTE | 2025-06-01 17:39 | DI.MG.S_ITS ---
MM screening mammo BI: 06/01/2025. BI-RADS: 1 CLINICAL: 59-year old female for bilateral screening mammogram. Tyrer-Cuzick lifetime risk of 7.7%. No personal or first-degree family history of breast cancer. Current reported family history of breast cancer: maternal aunt. PRIOR EXAMS 12/23/2023, 12/17/2022, 11/25/2020, 10/24/2015. MAMMOGRAPHY TECHNIQUE: 2D and 3D (tomosynthesis) digital mammographic views obtained, with additional images as needed for full coverage. Current study was also evaluated with a Computer Aided Detection (CAD) system. DENSITY B. There are scattered areas of fibroglandular density. MAMMOGRAPHY FINDINGS Bilateral: No suspicious mass, asymmetry, microcalcification, or other abnormality seen. IMPRESSION: * No evidence of malignancy. RECOMMENDATIONS Bilateral * Annual screening mammography. OVERALL ASSESSMENT CATEGORY BI-RADS-1: Negative. The [employer] recommends annual screening mammography beginning at age 40 for women with average risk of breast cancer. ELECTRONICALLY SIGNED: Carmela Boswell M.D. on 06/04/2025 at 03:12:29 PM PT Interpreting Station ID: [id number]
== END ==
LOC: MAMMO 17:38
PROVIDERS: PCP Physician Assistant; Referring Provider Physician Assistant; Visit Provider Physician Assistant
DX: Z12.31 Encounter for screening mammogram for malignant neoplasm of breast (principal); Z80.3 Family history of malignant neoplasm of breast
CPT/HCPCS: 77063; 77067